=== PATIENT | female | born 1970 | race Caucasian/White ===

== ENCOUNTER 2019-07-13 16:53 | Emergency (ER) | payer OTHER, SELFPAY ==
[2019-07-13 16:57] VITALS: BP 110/90; PULSE 79; RESP 18; TEMP 36.6; O2SAT 100
--- NOTE | 2019-07-13 16:59 | ED.GENADULT ---
HPI - General Adult General Chief complaint: Headache Stated complaint: headache Time Seen by Provider: 07/13/19 16:58 Source: patient Mode of arrival: ambulatory Limitations: no limitations History of Present Illness HPI narrative: Patient is a 49-year-old female with a history of previous migraine headaches who presents for evaluation of headache pain. Patient reports that she had what feels consistent with migraine headache that began this morning with gradual onset, pain over her right eye and the right side of her head without visual changes. Patient does report photosensitivity, nausea without vomiting. No dizziness. No numbness. No thunderclap sensation or acute onset. Patient has been ambulatory. She denies any weakness. Patient states she had a history of migraine headaches such as this several years ago that also occur when she did not drink coffee in the morning, and this morning patient also did not drink coffee and felt the headache coming on immediately. Patient denies any chest pain, belly pain. Related Data Allergies Allergy/AdvReac Type Severity Reaction Status Date / Time amoxicillin [From Augmentin] Allergy Unknown Swelling Verified 07/13/19 17:24 clavulanic acid Allergy Unknown Swelling Verified 07/13/19 17:24 [From Augmentin] Penicillins Allergy Unknown Swelling Verified 07/13/19 17:01 of Lip/Tongue/Throat Review of Systems Review of Systems: Narrative: CONSTITUTIONAL: Denies fever, chills, or sweats. EYES: Denies visual changes ENT: Denies rhinorrhea, congestion CARDIOVASCULAR: Denies chest pain RESPIRATORY: Denies cough or dyspnea. GASTROINTESTINAL: Denies abdominal pain, reports nausea GENITOURINARY: Denies dysuria or hematuria. SKIN: Denies rash or itching. MUSCULOSKELETAL: Denies back pain, joint pain, or myalgia. NEUROLOGIC: Reports headache, denies numbness or weakness PSYCHIATRIC: Reports history of anxiety PMFSH Past Medical History Medical History (Updated 07/13/19 @ 17:26 by Danielle Min MD) Anxiety Nephrolithiasis Surgical History Surgical History (Updated 07/13/19 @ 18:29 by Danielle Min MD) H/O section H/O lithotripsy H/O: hysterectomy Social History Social History (Updated 07/13/19 @ 17:25 by Danielle Min MD) Smoking status: Never smoker Alcohol intake: never Substance use: never Living arrangements: with family Gender identity (if verbalized by the patient): Female Exam Narrative: Exam Narrative: GENERAL: Awake, alert, conversant, uncomfortable. HEAD: Normocephalic, atraumatic. EYES: PERRLA and EOMI. ENT: Nares clear, no rhinorrhea or epistaxis. Mucous membranes moist. NECK: Supple. CHEST: No respiratory distress, breathing even and non labored HEART: Regular rate, sinus rhythm ABDOMEN:Non distended, non tender EXTREMITIES: Normal range of motion. No edema. SKIN: Warm, dry, no rash. NEURO:No focal deficits. Alert and oriented x3. EOMs intact without nystagmus. No facial droop/asymmetry noted bilaterally. Grimace intact. Intact sensation in face. Hearing intact bilaterally. Shoulder shrug intact. Strength 5/5 bilateral upper extremities. Strength 5/5 bilateral lower extremities. Ambulatory with a narrow base, steady gait. Course Vital Signs Vital signs: Vital Signs Temperature 36.6 C 07/13/19 16:57 Pulse Rate 79 07/13/19 16:57 Respiratory Rate 18 07/13/19 16:57 Blood Pressure 110/90 07/13/19 16:57 Pulse Oximetry 100 07/13/19 16:57 Temperature 36.6 C 07/13/19 16:57 Pulse Rate 79 07/13/19 16:57 Respiratory Rate 18 07/13/19 16:57 Blood Pressure 110/90 07/13/19 16:57 Pulse Oximetry 100 07/13/19 16:57 Medical Decision Making MDM Narrative Medical decision making narrative: The patient was evaluated in the emergency department for headache. Patient's headache pain was not sudden or maximal in onset. There are no focal deficits on exam. Subarachnoid hemorrhage is felt to be
[2019-07-13] MEDS: SODIUM CHLORIDE 0.9% IV 1,000 ML 999 ML IV CONT (17:33)
[2019-07-13] MEDS: MAGNESIUM SULF 2 GM/WATER 50ML 2 GM/50 ML BAG IVPB (17:34)
[2019-07-13] MEDS: KETOROLAC 15 MG/ML VIAL (*BKC) IV PUSH (17:45)
[2019-07-13 17:52] LABS: Glucose Point of Care 81 (65-105)
[2019-07-13 18:39] VITALS: BP 115/68; PULSE 68; RESP 18; O2SAT 99
== END 2019-07-13 18:40 | disposition home or self-care (01) ==
PROVIDERS: Emergency Provider Emergency Medicine; PCP Family Medicine
DX: G43.009 Migraine without aura, not intractable, without status migrainosus (principal); Z87.442 Personal history of urinary calculi
CPT/HCPCS: 82948; 96365; 96375; 99284; J0131; J1100; J1200; J1885; J3475; J7030

== ENCOUNTER 2019-11-02 11:50 | Emergency (ER) | payer OTHER, SELFPAY ==
--- NOTE | ~2019-11-02 | CT_ITS ---
EXAMINATION: CT abdomen pelvis wo con DATE: 11/02/2019 12:41 INDICATION: Abdominal pain. History of prior kidney stones. TECHNIQUE: Computed tomography (CT) of the abdomen and pelvis was performed without intravenous contr ast. Automated exposure control and iterative reconstruction technique were employed. Exam dose: 232 .63 mGy-cm total exam DLP. COMPARISON: 11/15/[address] abdomen pelvis FINDINGS: The lung bases are clear of infiltrate or consolidation. Normal heart size. No pericardial or pleural effusion. The liver, gallbladder, bile ducts, spleen, pancreas, pancreatic duct and adrenal glands are normal. There is there is an approximately 3.2 mm calculus of the distal left ureter with proximal mild left hydroureteronephrosis. There are multiple left nonobstructing kidney stones, the largest measuring up to approximately 6 x 1 2.4 mm on axial view, situated in the lower pole, with numerous additional smaller left kidney stones . No right urinary tract calculus is evident. There are bilateral parapelvic renal cysts. Normal appendix. No bowel obstruction, bowel wall thickening, pneumatosis or intraperitoneal free air . Normal caliber and mild atherosclerotic calcification of the abdominal aorta. No intraperitoneal or r etroperitoneal or pelvic mass lesion or adenopathy or ascites. Common and degenerative disease at L5-S1. IMPRESSION: 3.2 mm distal left ureteral calculus with proximal mild left hydroureteronephrosis Numerous nonobstructing left kidney stones Bilateral parapelvic renal cysts Reviewed, dictated and finalized at [facility]. Reviewed, dictated and finalized at [facility]. IMPRESSION: 3.2 mm distal left ureteral calculus with proximal mild left hydro ureteronephrosis Numerous nonobstructing left kidney stones Bilateral parapelvic renal cysts
[2019-11-02 12:00] VITALS: BP 127/70; PULSE 86; RESP 18; TEMP 36.4; O2SAT 100
[2019-11-02 12:23] LABS: Basophils Percent Auto 0.5 % (0.2-1.2); Eosinophils Absolute Auto 0.1 K/mm3 (0-0.3); Eosinophils Percent Auto 1.7 % (0-4.4); Hematocrit 40.2 % (37.0-47.0); Hemoglobin 13.8 g/dL (12.0-15.0); Immature Granulocyte Absolute 0.04 K/mm3 (0.00-0.031); Immature Granulocyte Percent A 0.5 % (0-0.5); Lymphocytes Absolute Auto 2.48 K/mm3 (0.9-3.2); Lymphocytes Percent Auto 29.7 % (18.3-44.2); Mean Corpuscular HGB Conc 34.3 g/dl (32-36); Mean Corpuscular Hemoglobin 33.3 pg (26-34); Mean Corpuscular Volume 96.9 fl (80-100); Mean Platelet Volume 9.5 fl (7.4-10.4); Monocytes Absolute Auto 0.5 K/mm3 (0.1-0.6); Monocytes Percent Auto 5.6 % (2.6-8.5); Neutrophils Absolute Auto 5.2 K/mm3 (1.3-6.7); Platelet Count Result 235 k/mm3 (150-375); Red Blood Count 4.15 M/mm3 (4.2-5.4); Red Cell Distribution Width 12.2 % (11.5-14.5); White Blood Count 8.4 K/mm3 (4.5-10.0)
--- NOTE | 2019-11-02 12:25 | ED.ABDPAIN ---
HPI - Abdominal Pain General Chief Complaint: Abdominal Pain Stated Complaint: Possible Kidney Stone Time Seen by Provider: 11/02/19 12:25 Source: patient Mode of arrival: ambulatory Limitations: no limitations History of Present Illness HPI narrative: Patient presents with left flank pain radiating to the left lower quadrant started this morning, denies any aggravating or relieving factors, patient reports similar symptoms secondary to kidney stone. Patient denies any fever, chills, nausea, vomiting or urinary symptoms. Currently patient denied any symptoms. She is pain-free Related Data Allergies Allergy/AdvReac Type Severity Reaction Status Date / Time amoxicillin [From Augmentin] Allergy Unknown Swelling Verified 11/02/19 12:02 clavulanic acid Allergy Unknown Swelling Verified 11/02/19 12:02 [From Augmentin] Penicillins Allergy Unknown Swelling Verified 11/02/19 12:02 of Lip/Tongue/Throat Review of Systems Review of Systems: Narrative: CONSTITUTIONAL: Denies fever, chills, or sweats. EYES: Denies visual changes, redness, or discharge. ENT: Denies rhinorrhea, congestion, sore throat, or otalgia. CARDIOVASCULAR: Denies chest pain, palpitations, or edema. RESPIRATORY: Denies cough or dyspnea. GASTROINTESTINAL: Denies abdominal pain, nausea, vomiting, or diarrhea. GENITOURINARY: Denies dysuria or hematuria. SKIN: Denies rash or itching. MUSCULOSKELETAL: Denies back pain, joint pain, or myalgia. NEUROLOGIC: Denies headache, numbness, or weakness. PSYCHIATRIC: Denies anxiety or depression. COUNT INCLUDES THE [facility] Past Medical History Medical History Anxiety Nephrolithiasis Surgical History Surgical History H/O section H/O lithotripsy H/O: hysterectomy Social History Social History Smoking status: Never smoker Alcohol intake: never Substance use: never Gender identity (if verbalized by the patient): Female Exam Narrative: Exam Narrative: General appearance: Well-developed, well-nourished Skin: Normal color Head: Normocephalic, nontraumatic Eyes: Clear conjunctiva ENT: Oropharynx normal, ears normal, nose normal Neck: Supple, nontender Chest and respiratory: Airway patent, no respiratory distress, no accessory muscle use Heart: Regular rate/rhythm Abdomen: Soft, nontender, no organomegaly, quiet bowel sounds Vascular: Normal peripheral pulses, normal capillary refill. Musculoskeletal: Normal range of motion, nontender back Neurologic: Alert and oriented ?3, [employer] is normal as tested, no gross motor deficit Course Course Emergency Course: Improved Vital Signs Vital signs: Vital Signs Temperature 36.4 C 11/02/19 12:00 Pulse Rate 86 11/02/19 12:00 Respiratory Rate 18 11/02/19 12:00 Blood Pressure 127/70 11/02/19 12:00 Pulse Oximetry 100 11/02/19 12:00 Temperature 36.4 C 11/02/19 12:00 Pulse Rate 86 11/02/19 12:00 Respiratory Rate 18 11/02/19 12:00 Blood Pressure 127/70 11/02/19 12:00 Pulse Oximetry 100 11/02/19 12:00 MDM - Abdominal Pain MDM Narrative Medical decision making narrative: Kidney stone is my concern. Labs, CT abdomen and pelvis without contrast ordered. UA showed hematuria, CT abdomen and pelvis without contrast showed a 3.2 mm stone distal left ureter. Currently patient is asymptomatic which could be already passed the stone . Patient will be discharged to follow-up with Dr. Espinoza as needed Lab Data Result diagrams: 11/02/19 12:16 11/02/19 12:16 Labs: Lab Results 11/02/19
[2019-11-02 12:32] LABS: Add Urine Microscopic? YES; Appearance Urine Clear (Clear); Bacteria Urine Trace /hpf; Bilirubin Urine Negative (Negative); Blood Urine 2+ (Negative); Color Urine Yellow (Yellow); Glucose Urine UA Negative (Negative); Ketones Urine Negative (Negative); Leukocyte Esterase Ur Negative LEU/UL (Negative); Mucus Urine Few /lpf; Nitrate Urine Negative (Negative); Protein Urine 1+ mg/dL (Negative); RBC Urine 51-75 /hpf (0-2); Specific Grav Ur 1.018 (1.001-1.035); Squamous Epithelial Cell Urine Occasional /hpf (Few); Urobilinogen Urine Negative mg/dL (<2.0); WBC Urine 0-3 /hpf
[2019-11-02 12:41] LABS: Anion Gap 7 mmol/L (8-16); Blood Urea Nitrogen 13 mg/dL (7-17); Calcium 8.8 mg/dL (8.4-10.2); Carbon Dioxide 25 mmol/L (22-30); Chloride 105 mmol/L (98-107); Estimated Glomerular Filt Rate > 60; Glucose 79 mg/dL (65-105); Potassium 4.4 mmol/L (3.4-5.0); Sodium 137 mmol/L (137-145)
--- NOTE | 2019-11-02 13:48 | PC.NURSE ---
all results back. waiting further orders.
[2019-11-02 14:31] VITALS: BP 133/88; PULSE 78; RESP 17; O2SAT 100
== END 2019-11-02 14:32 | disposition home or self-care (01) ==
PROVIDERS: Physician Assistant; Emergency Provider Emergency Medicine; PCP Family Medicine
DX: N13.2 Hydronephrosis with renal and ureteral calculous obstruction (principal); Z87.442 Personal history of urinary calculi; N28.1 Cyst of kidney, acquired
CPT/HCPCS: 36415; 74176; 80048; 81001; 85025; 99284

== ENCOUNTER 2020-04-20 08:20 | Outpatient (CLI) | payer OTHER, SELFPAY ==
--- NOTE | 2020-04-20 | ECG_ITS ---
Measurements Intervals [place] Rate: 57 P: 60 HI: 158 QRS: 0 QRSD: 77 T: 47 QT: 443 QTc: 435 Interpretive Statements SINUS BRADYCARDIA BORDERLINE ECG Electronically Signed On 04-20-2020 10:19:16 UTILIZATION MANAGER by Navdeep Melo D.O.
--- NOTE | 2020-04-20 | ECHO_ITS ---
Patient Info Name: Charmaine Davis Age: 50 years : 1970 Gender: Female Ht: 67 in Wt: 165 lbs BSA: 1.89 m2 HR: 51 bpm BP: 119 / 68 mmHg Heart Rhythm: Bradycardia, Sinus Rhythm Technical Quality: Good Exam Date: 04/20/2020 9:05 AM Exam Location: [facility] Patient Status: Outpatient Admit Date: 04/20/2020 Staff Ordering Physician: Bruno, Nora Ramirez NP Building Insulation Supervisor: Dot Arguelles RDCS Attending Provider: Jordan, Nora Ramirez NP Referring Physician: Bruno NATARAJAN; Exam Type: CA echo doppler color flow Study Info Indications - R06.02 SOB Complete two-dimensional, color flow and Doppler transthoracic echocardiogram is performed. Summary 1. Complete two-dimensional, color flow and Doppler transthoracic echocardiogram is performed. 2. Left ventricular systolic function is normal, estimated at 55-60%. 3. There is no increased left ventricular wall thickness. 4. The left ventricular diastolic function is normal. 5. Left atrial chamber dimension is mildly enlarged. 6. Right atrial chamber dimension is upper limits of normal. 7. There is no aortic valve stenosis. 8. There is trace mitral valve regurgitation. 9. There is trace tricuspid valve regurgitation. 10. No pulmonary hypertension, estimated pulmonary arterial systolic pressure is 24 mmHg. 11. There is trivial pericardial effusion. Left Ventricle Left ventricular chamber dimension is normal. Left ventricular systolic function is normal, estimated at 55-60%. There is no increased left ventricular wall thickness. The left ventricular diastolic function is normal. Global longitudinal strain is normal at -19 %. Right Ventricle Right ventricular chamber dimension is normal. Right ventricular systolic function is normal. Left Atria Left atrial chamber dimension is mildly enlarged. Right Atria Right atrial chamber dimension is upper limits of normal. Aortic Valve The aortic valve is probable trileaflet. There is no aortic valve stenosis. There is no aortic valve regurgitation. Pulmonic Valve The pulmonic valve is not well visualized. Mitral Valve The mitral valve has normal leaflets. There is trace mitral valve regurgitation. Tricuspid Valve The tricuspid valve leaflets are normal. There is trace tricuspid valve regurgitation. No pulmonary hypertension, estimated pulmonary arterial systolic pressure is 24 mmHg. Pericardium/Pleural The pericardium appears normal. There is trivial pericardial effusion. Inferior Vena Cava Normal inferior vena cava with >50% collapse upon inspiration consistent with normal right atrial pressure, 5 mmHg. Aorta The aortic root size at the sinus of Valsalva is normal. Left Ventricular Outflow Tract Name Value Normal LVOT 2D LVOT Diameter 2.0 cm LVOT Doppler LVOT Peak Gradient 4 mmHg LVOT Mean Gradient 2 mmHg LVOT VTI 22 cm LVOT VTI/AV VTI Ratio 0.9 LVOT Stroke Volume 67 ml LVOT CO
== END 2020-04-20 08:21 | disposition home or self-care (01) ==
PROVIDERS: PCP Family Medicine; Visit Provider Nurse Practitioner
DX: R00.2 Palpitations (principal); R06.02 Shortness of breath; R94.31 Abnormal electrocardiogram [ECG] [EKG]
CPT/HCPCS: 93005; 93306

== ENCOUNTER 2020-07-25 11:39 | Outpatient (CLI) | payer OTHER, SELFPAY ==
--- NOTE | 2020-08-11 13:24 | WPDHOMESLEEP ---
Sleep Study - Home Unattended Date of Study: 07/25/20 Ordering Provider: Navdeep Melo DO Interpreting Provider: Katie Llanes MD Home Sleep Study Type: Apnea Link Air Height: 1.7 m Weight: 74.843 kg Body Mass Index: 25.8 Neck Circumference (inches): 10.75 [place]: 11 Reason for Sleep Study Hypersomnia Sleep History Charmaine Davis is a 50-year-old female whose tells her that she snores and stops breathing at night. She rarely awakens from sleep feeling short of breath. She does not awaken at night with heartburn, belching or coughing. She frequently snores, and this is frequently loud enough that he complains about it. She frequently has trouble sleep with a cold. She rarely wakes up gasping for breath at night. She does not have breathing problems at night that she is aware of. She occasionally sweats excessively at night. She frequently notices her heart pounding or beating irregularly at night. She occasionally falls asleep in the day. She does not fall asleep involuntarily. She rarely falls asleep while driving. She does not have loss of muscle tone was strong emotion. She occasionally has daytime difficulties due to excessive sleepiness. She does not feel paralyzed on waking or falling asleep. She frequently has vivid dreamlike scenes upon awakening or falling asleep. She does not feel afraid to go to sleep. She frequently has nightmares. She frequently remembers her dreams and frequently has racing thoughts. She occasionally feels sad, depressed, and anxious. She constantly has muscular tension. She rarely notices parts of her body jerking and she rarely kicks at night. She constantly has crawling and aching feelings in her legs. She occasionally has leg pain at night. She occasionally has morning jaw pain. She does not grind her teeth during sleep. She frequently has bothered by pain during the day, occasionally has awakened by pain at night. She occasionally wakes up feeling stiff the morning. She occasionally wakes up with sore or achy muscles. She frequently wakes up with pain in the neck and spine. She has fatigue, palpitations, memory problems and poor appetite. Normal bedtime 9:00 p.m. falling asleep somewhere between 11:00 p.m. and 12 midnight. She wakes up every time she hears a noise. She is able to go back to sleep within 15 minutes. She wakes in the morning at 7:00 a.m.. On the weekends she goes to bed at 9:00 p.m. and wakes at 9:00 a.m.. She estimates getting between 7 and 8 hours of sleep at night. She takes naps in the afternoon or evening. A short nap may be refreshing. She is usually drowsy in the morning. She feels better in the afternoon compared other times a day. Habits: Quit tobacco 13 years ago. Caffeine 1 soda and 1 coffee per day. No alcohol or recreational drugs. [facility] Past Medical History Medical History (Updated 08/11/20 @ 16:14 by Katie Llanes MD) Anxiety Anxiety and depression Hypothyroidism Nephrolithiasis Surgical History Surgical History H/O section H/O lithotripsy H/O: hysterectomy Social History Social History Smoking status: Former smoker Alcohol intake: never Substance use: never Gender identity (if verbalized by the patient): Female Medications Home Medications Medication Instructions Recorded Confirmed Type fluoxetine 20 mg capsule 20 mg PO DAILY 05/02/20 05/17/20 History fluticasone propionate 50 1 spray INTRANASAL DAILY 05/02/20 05/17/20 History mcg/actuation nasal spray,suspension cholecalciferol (vitamin D3) 125 125 mcg PO DAILY 05/17/20 05/17/20 History mcg (5,000 unit) capsule levothyroxine 100 mcg tablet 100 mcg PO DAILY 05/17/20 05/17/20 History melatonin 5 mg capsule 10 mg PO DAILY cap 05/17/20 05/17/20 History vitamin B complex 1 tablet PO DAILY 05/17/20 05/17/20 History Sleep Proc
[2020-08-11 15:59] VITALS: BMI 25.8
== END 2020-07-27 11:08 | disposition home or self-care (01) ==
LOC: ANHCSM 11:41
PROVIDERS: PCP Family Medicine; Visit Provider Internal Medicine Cardiovascular Disease
DX: G47.10 Hypersomnia, unspecified (principal); G47.33 Obstructive sleep apnea (adult) (pediatric)
CPT/HCPCS: 95806

== ENCOUNTER 2020-09-09 18:11 | Emergency (ER) | payer OTHER, SELFPAY ==
[2020-09-09 18:13] VITALS: BP 128/63; PULSE 83; RESP 17; TEMP 36.3; O2SAT 99
--- NOTE | 2020-09-09 19:11 | ED.DENTAL ---
HPI - Dental/Oral General Chief complaint: Dental/Oral Stated complaint: tooth abscess Time Seen by Provider: 09/09/20 18:24 Source: patient Mode of arrival: ambulatory Limitations: no limitations History of Present Illness HPI Narrative: Patient presents for evaluation of right lower dental pain for last week. She states the pain is constant, throbbing, rated 8 out of 10 in severity. She the antibiotic therapy about a month ago. She had a root canal scheduled but the dentist informed her that they would need to reschedule the procedure. No fever, chills, nausea, vomiting. She took ibuprofen around noon today. This helped reduce her pain but she had recurrence of her pain within the last hour. No difficulty breathing or swallowing. No additional complaints or concerns. Related Data Home Medications Medication Instructions Recorded Confirmed fluoxetine 20 mg capsule 20 mg PO DAILY 05/02/20 08/16/20 fluticasone propionate 50 1 spray INTRANASAL DAILY 05/02/20 08/16/20 mcg/actuation nasal spray,suspension cholecalciferol (vitamin D3) 125 125 mcg PO DAILY 05/17/20 08/16/20 mcg (5,000 unit) capsule levothyroxine 100 mcg tablet 100 mcg PO DAILY 05/17/20 08/16/20 melatonin 5 mg capsule 10 mg PO DAILY cap 05/17/20 08/16/20 vitamin B complex 1 tablet PO DAILY 05/17/20 08/16/20 Allergies Allergy/AdvReac Type Severity Reaction Status Date / Time amoxicillin [From Augmentin] Allergy Unknown Swelling Verified 09/09/20 18:17 clavulanic acid Allergy Unknown Swelling Verified 09/09/20 18:17 [From Augmentin] Penicillins Allergy Unknown Swelling Verified 09/09/20 18:17 of Lip/Tongue/Throat Review of Systems Review of Systems: Narrative: CONSTITUTIONAL: Denies fever, chills, or sweats. EYES: Denies visual changes, redness, or discharge. ENT: Reports right lower dental pain. Denies rhinorrhea, congestion, sore throat, or otalgia. CARDIOVASCULAR: Denies chest pain, palpitations, or edema. RESPIRATORY: Denies cough or dyspnea. GASTROINTESTINAL: Denies abdominal pain, nausea, vomiting, or diarrhea. GENITOURINARY: Denies dysuria or hematuria. SKIN: Denies rash or itching. MUSCULOSKELETAL: Denies back pain, joint pain, or myalgia. NEUROLOGIC: Denies headache, numbness, dizziness, or weakness. PSYCHIATRIC: Denies anxiety or depression. PMFSH Past Medical History Medical History Anxiety Anxiety and depression Hypothyroidism Nephrolithiasis Surgical History Surgical History H/O section H/O lithotripsy H/O: hysterectomy Family History Family History (Updated 09/09/20 @ 19:13 by SENAIT Martinez, ) Mother No pertinent past medical history Father No pertinent past medical history Social History Social History Smoking status: Former smoker Alcohol intake: never Substance use: never Gender identity (if verbalized by the patient): Female Exam Narrative: Exam Narrative: GENERAL: Well-appearing, well-nourished, and in no acute distress. HEAD: Normocephalic, atraumatic. EYES: PERRLA and EOMI. ENT: Nares clear, no rhinorrhea or epistaxis. Mucous membranes moist. Oropharynx without tonsillar hypertrophy exudate or other lesions. There are several absent teeth. There is tenderness in the gumline adjacent to the right lower molar but there does not appear to be a significant drainable fluid collection. No trismus. Bilateral TMs pearly romano nonbulging NECK: Supple. No adenopathy or masses. No carotid bruits or JVD CHEST: Clear to auscultation. No respiratory distress. No wheezes rales or rhonchi HEART: Regular rate and rhythm. No murmur heard. Normal peripheral pulses. ABDOMEN: Soft, nontender, nondistended, normal active bowel sounds. EXTREMITIES: Normal range of motion. No edema. SKIN: Warm, dry, n
[2020-09-09] MEDS: CLINDAMYCIN HCL 150 MG CAP 300 MG PO (19:24)
[2020-09-09 19:31] VITALS: BP 120/75; PULSE 80; RESP 19; O2SAT 100
== END 2020-09-09 19:34 | disposition home or self-care (01) ==
PROVIDERS: Emergency Provider Nurse Practitioner; PCP Family Medicine
DX: K04.7 Periapical abscess without sinus (principal); F41.9 Anxiety disorder, unspecified; F32.9 Major depressive disorder, single episode, unspecified; Z87.891 Personal history of nicotine dependence
CPT/HCPCS: 99283; A9270

== ENCOUNTER 2020-11-28 16:12 | Outpatient (CLI) | payer OTHER, SELFPAY ==
--- NOTE | ~2020-11-28 | MM_ITS ---
EXAMINATION: MM screening [facility] BI w sarbjit HISTORY: Screening mammogram TECHNIQUE: Craniocaudal and mediolateral oblique 3-D tomosynthesis images were obtained and synthetic 2-D images were generated. CAD analysis was submitted and interpreted. COMPARISON: 07/25/2016, 01/12/2013 BREAST PARENCHYMAL COMPOSITION: There are scattered areas of fibroglandular density. FINDINGS: There is no evidence of suspicious mass, calcification, or architectural distortion to sugg est malignancy in either breast. There has been no suspicious interval change. IMPRESSION: 1. No mammographic evidence of malignancy. 2. Recommend routine screening mammography in one year. BI-RADS Category 1: Negative Reviewed, dictated and finalized at [facility].
== END 2020-11-28 16:13 | disposition home or self-care (01) ==
LOC: ANHIMG 16:14
PROVIDERS: PCP Family Medicine; Visit Provider Nurse Practitioner
DX: Z12.31 Encounter for screening mammogram for malignant neoplasm of breast (principal)
CPT/HCPCS: 77063; 77067

== ENCOUNTER → 2021-02-23 00:58 | Outpatient (CLI) | payer OTHER, SELFPAY ==
[2021-02-23 20:42] LABS: SARS-CoV-2 RNA PCR Positive
== END ==
PROVIDERS: PCP Family Medicine; Visit Provider Family Medicine
DX: U07.1 COVID-19 (principal)
CPT/HCPCS: C9803; U0003; U0005

== ENCOUNTER 2021-02-27 02:00 | Emergency (ER) | payer OTHER, SELFPAY ==
--- NOTE | ~2021-02-27 | CT_ITS ---
EXAMINATION: CT abdomen pelvis wo con DATE: 02/27/2021 09:41 INDICATION: Left abdominal pain. Constipation. Nausea and vomiting. TECHNIQUE: Computed tomography (CT) of the abdomen and pelvis was performed without intravenous contr ast. Automated exposure control and iterative reconstruction technique were employed. The dose-length product was 358.49 mGy-cm. COMPARISON: CT abdomen and pelvis 11/02/2019, 03/06/2016 FINDINGS: The visualized portions of the lung bases demonstrate mild atelectasis. There is a trace le ft pleural effusion. The heart size is normal. No pericardial effusion. There is diffuse hepatic stea tosis. The gallbladder, spleen, pancreas, and adrenal glands are normal. There are peripelvic cysts i n the kidneys. There are seven 1-2 mm stones in left kidney. There is an 11 mm stone in left kidney. No definite hydronephrosis. There are no dilated loops of bowel. The appendix is normal. There are no pathologically enlarged lymph nodes. There is no free intraperitoneal fluid. There is thoracolumbar levoscoliosis. There is severe lower lumbar spondylosis. IMPRESSION: 1. Nonobstructing left kidney stones. Reviewed, dictated and finalized at location A. CHEMICAL DEPENDENCY
[2021-02-27 02:02] VITALS: BP 124/82; PULSE 90; RESP 16; TEMP 36.4; O2SAT 99
[2021-02-27 04:24] VITALS: BP 122/80; PULSE 97; RESP 18; TEMP 36.3; O2SAT 100
[2021-02-27 07:25] LABS: Red Blood Count 4.19 M/mm3 (4.2-5.4); White Blood Count 11.9 K/mm3 (4.5-10.0)
[2021-02-27 07:26] LABS: Basophils Percent Auto 0.3 % (0.2-1.2); Eosinophils Absolute Auto 0.1 K/mm3 (0-0.3); Eosinophils Percent Auto 0.8 % (0-4.4); Hematocrit 40.3 % (37.0-47.0); Hemoglobin 13.7 g/dL (12.0-15.0); Immature Granulocyte Percent A 0.8 % (0-0.5); Lymphocytes Absolute Auto 0.73 K/mm3 (0.9-3.2); Lymphocytes Percent Auto 6.1 % (18.3-44.2); Mean Corpuscular Hemoglobin 32.7 pg (26-34); Mean Corpuscular Volume 96.2 fl (80-100); Mean Platelet Volume 9.7 fl (7.4-10.4); Monocytes Absolute Auto 0.5 K/mm3 (0.1-0.6); Monocytes Percent Auto 3.9 % (2.6-8.5); Neutrophils Absolute Auto 10.5 K/mm3 (1.3-6.7); Neutrophils Percent Auto 88.1 % (45.5-73.1); Platelet Count Result 196 k/mm3 (150-375); Red Cell Distribution Width 13.2 % (11.5-14.5)
[2021-02-27 07:50] VITALS: TEMP 38.7
[2021-02-27 07:51] LABS: Add Urine Microscopic? YES; Appearance Urine Clear (Clear); Bacteria Urine Trace /hpf; Bilirubin Urine Negative (Negative); Blood Urine 1+ (Negative); Color Urine Yellow (Yellow); Glucose Urine UA Negative (Negative); Ketones Urine 1+ mg/dL (Negative); Leukocyte Esterase Ur 1+ LEU/UL (Negative); Mucus Urine Few /lpf; Nitrate Urine Negative (Negative); Protein Urine 2+ mg/dL (Negative); Specific Grav Ur 1.023 (1.001-1.035); Squamous Epithelial Cell Urine Occasional /hpf (Few); Urobilinogen Urine Negative mg/dL (<2.0); WBC Urine 31-50 /hpf
[2021-02-27 07:59] LABS: Alanine Aminotransferase 20 U/L (4-35); Albumin Level 3.8 g/dL (3.5-5.1); Alkaline Phosphatase 115 U/L (38-126); Anion Gap 10 mmol/L (8-16); Aspartate Amino Transferase 21 U/L (14-36); Bilirubin,Total 0.8 mg/dL (0.2-1.3); Blood Urea Nitrogen 11 mg/dL (7-17); Calcium 8.7 mg/dL (8.4-10.2); Carbon Dioxide 26 mmol/L (22-30); Chloride 101 mmol/L (98-107); Estimated CRCL calculation 84 ml/min; Estimated Glomerular Filt Rate > 60; Glucose 124 mg/dL (65-110); Lipase 14 U/L (23-300); Potassium 3.4 mmol/L (3.4-5.0); Sodium 137 mmol/L (137-145)
[2021-02-27] MEDS: ONDANSETRON INJ 4 MG/2 ML VIAL IV PUSH (08:42)
[2021-02-27] MEDS: MORPHINE SULFATE (*CRX) 4 MG/ML INJ IV PUSH (08:42)
[2021-02-27] MEDS: SODIUM CHLORIDE 0.9% IV 1,000 ML 999 ML IV CONT (08:44)
--- NOTE | 2021-02-27 10:33 | ED.ABDPAIN ---
HPI - Abdominal Pain General Chief Complaint: Abdominal Pain Stated Complaint: COVID +, lower left abd. pain, n/v Time Seen by Provider: 02/27/21 07:01 History of Present Illness HPI narrative: Patient is a 50-year-old female who presents ER with multiple issues. Recently diagnosed with COVID-19 8 days ago. She has been having daily fevers. Over the last 2 days has been having nausea and vomiting is developed increased abdominal pain on the left side extending over to the right side. No diarrhea. No urinary frequency urgency or dysuria. Concerned she could have a kidney stone. Patient unvaccinated against COVID-19. Related Data Home Medications Medication Instructions Recorded Confirmed fluoxetine 20 mg capsule 20 mg PO DAILY 05/02/20 11/23/20 levothyroxine 100 mcg tablet 100 mcg PO DAILY 05/17/20 11/23/20 Allergies Allergy/AdvReac Type Severity Reaction Status Date / Time amoxicillin [From Augmentin] Allergy Unknown Swelling Verified 02/27/21 02:06 clavulanic acid Allergy Unknown Swelling Verified 02/27/21 02:06 [From Augmentin] Penicillins Allergy Unknown Swelling Verified 02/27/21 02:06 of Lip/Tongue/Throat Review of Systems Review of Systems: All systems reviewed & are unremarkable except as noted in HPI and below Constitutional: Constitutional: Denies chills, Reports fatigue and Reports fever(s) ENT: Denies nasal congestion and Denies sore throat Gastrointestinal: Gastrointestinal: Reports abdominal pain, Denies diarrhea, Reports nausea and Reports vomiting Genitourinary: Genitourinary: Denies nocturia, Denies dysuria and Denies flank pain Musculoskeletal: Musculoskeletal: Denies back pain, Denies joint swelling and Denies muscle cramps PMF Past Medical History Medical History Anxiety Anxiety and depression Hypothyroidism Nephrolithiasis Surgical History Surgical History H/O section H/O lithotripsy H/O: hysterectomy Family History Family History Mother No pertinent past medical history Father No pertinent past medical history Social History Social History Smoking status: Former smoker Alcohol intake: never Substance use: never Gender identity (if verbalized by the patient): Female Exam Narrative: GENERAL: Well-appearing, well-nourished, and in no acute distress. HEAD: Normocephalic, atraumatic. CHEST: Clear to auscultation. No respiratory distress. HEART: Regular rate and rhythm. Normal peripheral pulses. ABDOMEN: Soft, nontender, nondistended. EXTREMITIES: Normal range of motion. No edema. SKIN: Warm, dry, no rash. NEURO: Alert and oriented x3. PSYCH: Normal mood and affect. Course Course Emergency Course: Patient hydrated, pain improved with morphine and nausea improved with Zofran. Informed of results. Will place on antibiotic in case she is developing UTI. Vital Signs Vital signs: Vital Signs Temperature 97.6 F 02/27/21 02:02 Pulse Rate 90 02/27/21 02:02 Respiratory Rate 16 02/27/21 02:02 Blood Pressure 124/82 02/27/21 02:02 Pulse Oximetry 99 02/27/21 02:02 Temperature 101.7 F H 02/27/21 07:50 Pulse Rate 97 02/27/21 04:24 Respiratory Rate 18 02/27/21 04:24 Blood Pressure 122/80 02/27/21 04:24 Pulse Oximetry 100 02/27/21 04:24 MDM - Abdominal Pain Lab Data Result diagrams: 02/27/21 06:58 02/27/21 07:35 Labs: Lab Results 02/27/21 02/27/21 02/27/21 Range/Units 06:58 07:24 07:35 WBC 11.9 H (4.5-10.0) K/mm3 RBC 4.19 L (4.2-5.4) M/mm3 Hgb 13.7 (12.0-15.0) g/dL Hct 40.3 (37.0-47.0) % MCV 96.2 (80-100) fl MCH 32.7 (26-34) pg MCHC 34.0 (32-36) g/dl RDW 13.2 (11.5-14.5) % Plt Count 196 (150-375)
== END 2021-02-28 00:58 | disposition home or self-care (01) ==
PROVIDERS: Emergency Medicine; Emergency Provider Emergency Medicine; PCP Family Medicine
DX: U07.1 COVID-19 (principal); N39.0 Urinary tract infection, site not specified; R11.2 Nausea with vomiting, unspecified; E03.9 Hypothyroidism, unspecified; Z87.442 Personal history of urinary calculi; F41.9 Anxiety disorder, unspecified; F32.A Depression, unspecified; Z87.891 Personal history of nicotine dependence
CPT/HCPCS: 36415; 74176; 80053; 81001; 83690; 85025; 87077; 87086; 87088; 87186; 96361; 96374; 96375; 99284; J2270; J2405; J7030

== ENCOUNTER 2021-04-23 15:49 | Outpatient (CLI) | payer OTHER, SELFPAY ==
--- NOTE | ~2021-04-23 | XR_ITS ---
XR abdomen/kub 1V 04/23/2021 16:07 Indication: Acute pyelonephritis Procedure: KUB Comparison: Comparison to multiple prior studies sequentially, with oldest reviewed study dated 05/03. Findings: Nonobstructive bowel gas pattern. Stable calcifications overlying the left kidney, consiste nt with renal stones. There are pelvic phleboliths. Lung bases unremarkable. Mild levoscoliosis. Impression: 1: Left nephrolithiasis. Reviewed, dictated and finalized at location A. CIATE PROFESSOR OF SURGERY Impression: 1: Left nephrolithiasis.
== END 2021-04-23 15:50 | disposition home or self-care (01) ==
PROVIDERS: PCP Family Medicine; Visit Provider Nurse Practitioner Adult Health
DX: N10 Acute pyelonephritis (principal); N20.0 Calculus of kidney
CPT/HCPCS: 74018

== ENCOUNTER 2021-04-27 14:36 | Outpatient (CLI) | payer OTHER, SELFPAY ==
--- NOTE | ~2021-04-27 | US_ITS ---
EXAMINATION: US pelvic complete DATE: 04/27/2021 15:45 INDICATION: Left abdominal pain Comparison:No prior studies for comparison. TECHNIQUE: Multiple transabdominal sonographic images of the pelvis performed. FINDINGS: The uterus is surgically absent. The ovaries are not visualized, likely atrophic or surgically absent. There is no free fluid in the pelvis. There are no abnormal masses seen on either side. IMPRESSION: 1. Unremarkable pelvic ultrasound post hysterectomy. Reviewed, dictated and finalized at location A. ER RECOVERY OPERATOR
--- NOTE | ~2021-04-27 | US_ITS ---
EXAMINATION: US abdomen complete EXAM DATE: 04/27/2021 15:44 INDICATION: Acute pyelonephritis. TECHNIQUE: Multiple grayscale and Doppler images of the complete abdomen were obtained (by a technolo gist who performed the scan) and subsequently reviewed. There is no prior study for comparison. FINDINGS: The abdominal aorta is normal in caliber. Visualized portion IVC is patent. The pancreatic head a nd body are normal in appearance. The pancreatic tail is not visualized. The liver has normal echogenicity and contour. There are no focal liver lesions identified. There is no evidence of intrahepatic biliary duct dilation. Portal venous flow was seen in the hepatopedal , normal direction and has normal Doppler waveform. Common bile duct measures 3 mm, which is normal. The gallbladder wall is normal in thickness, with ex pected amount of distention. No sonographic evidence of pericholecystic fluid. There is no cholelit hiasis. There is mild gallbladder adenomyomatosis. Pharyngeal cap. Technologist performing exam repor ts patient did not demonstrate sonographic Ochoa's sign. Please note that this sign is less reliabl e in patients who have received pain medication. Right kidney: There is normal contour and echogenicity. It measures 10.5 x 4.5 cm centimeters. The re are no focal renal lesions identified. There is mild to moderate right-sided hydronephrosis. Left kidney: There is normal contour and echogenicity. It measures 10.6 x 5.0 x 5.7 centimeters. Th ere is a 1 cm echogenic focus with shadowing lower pole left kidney probably stone. There is no hyd ronephrosis. The spleen measures 10 centimeters and is morphologically normal. IMPRESSION: 1. Mild to moderate right-sided hydronephrosis (finding which was present on prior CT from February, without evidence of obstructing stone at that time). 2. Probable left nephrolithiasis. Reviewed, dictated and finalized at location B. H CRYSTAL GRINDER IMPRESSION: 1. Mild to moderate right-sided hydronephrosis (finding which was present on p rior CT from February, without evidence of obstructing stone at that time). 2. Probable left nephrolithiasis.
== END 2021-04-27 14:37 | disposition home or self-care (01) ==
LOC: ANHIMG 14:39
PROVIDERS: PCP Family Medicine; Visit Provider Nurse Practitioner Adult Health
DX: N10 Acute pyelonephritis (principal)
CPT/HCPCS: 76700; 76856

== ENCOUNTER 2021-06-07 15:58 | Outpatient (CLI) | payer OTHER, SELFPAY ==
--- NOTE | ~2021-06-07 | XR_ITS ---
XR wrist RT min 3V DATE: 06/07/2021 16:15 INDICATION: Right wrist pain. Tendon disorder. TECHNIQUE: 4 views COMPARISON: None FINDINGS: No fracture or dislocation, periosteal reaction or bone destruction, erosive change or sari drocalcinosis. IMPRESSION: Negative Reviewed, dictated and finalized at location A. IMPRESSION: Negative
== END 2021-06-07 15:59 | disposition home or self-care (01) ==
LOC: ANHIMG 16:00
PROVIDERS: PCP Family Medicine; Visit Provider Nurse Practitioner Adult Health
DX: M25.531 Pain in right wrist (principal); M67.833 Other specified disorders of tendon, right wrist
CPT/HCPCS: 73110

== ENCOUNTER 2022-05-08 09:35 | Outpatient (CLI) | payer OTHER, SELFPAY ==
--- NOTE | ~2022-05-08 | XR_ITS ---
EXAMINATION: XR cervical spine 4-5V DATE: 05/08/2022 09:53 INDICATION: Neck pain. TECHNIQUE: 4 views of cervical spine on 5 radiographs were obtained. COMPARISON: Cervical spine radiographs 01/07/2017 FINDINGS: There is 12 degrees levoscoliosis of cervicothoracic spine. There is 2 mm retrolisthesis of C5 on C6 and C6 on C7. There is hypolordosis of cervical spine. Vertebral body heights are normal. T here is moderately decreased disc height at C5-C6 and severely decreased disc height at C6-C7. There is multilevel uncovertebral joint osteoarthritis, severe on the right at C5-C6 and bilaterally at C6- C7. There is multilevel mild facet joint osteoarthritis. There is mild central canal stenosis at C5-C 6 and C6-C7. No prevertebral soft tissue swelling. IMPRESSION: 1. Severe cervical spondylosis, worsened from 01/07/2017. 2. Cervicothoracic levoscoliosis. Reviewed, dictated and finalized at location A.
== END 2022-05-08 09:36 | disposition home or self-care (01) ==
PROVIDERS: PCP Family Medicine; Visit Provider Nurse Practitioner Adult Health
DX: R51.9 Headache, unspecified (principal); M47.892 Other spondylosis, cervical region
CPT/HCPCS: 72050

== ENCOUNTER 2022-09-09 08:04 | Outpatient (CLI) | payer OTHER, SELFPAY ==
--- NOTE | ~2022-09-09 | MR_ITS ---
MRI of the cervical spine Clinical History: Radiculopathy Technique: Axial T2-weighted and gradient images, and sagittal T1-weighted, T2-weighted, and STIR [place] ges were acquired. Findings: There is mild reversal of the normal cervical lordosis. No fracture or subluxation seen. No suspicious bone marrow signal abnormality seen. At C2-C3, there is no disc bulge or herniation. No spinal canal stenosis, cord compression, or neural foraminal narrowing. At C3-C4, there is no significant disc bulge or herniation. No spinal canal stenosis, cord compressio n, or neural foraminal narrowing. At C4-C5, there is no significant disc bulge or herniation. No spinal canal stenosis, cord compressio n, or neural foraminal narrowing. At C5-C6, there is mild degenerative disc narrowing with mild disc osteophyte complex. No angel centr al canal stenosis or cord compression. Possible minimal right neural foraminal narrowing. Left neural foramen preserved. At C6-C7, there is moderate to advanced degenerative disc narrowing with minimal disc bulge. No spina l canal stenosis or cord compression. Probable mild bilateral neural foraminal narrowing. Paravertebral soft tissues are unremarkable. No abnormal signal seen in the spinal cord. Impression: Mild degenerative spondylosis at C5-C6 and C6-C7. Reviewed, dictated and finalized at [facility]. Impression: Mild degenerative spondylosis at C5-C6 and C6-C7.
--- NOTE | ~2022-09-09 | MR_ITS ---
MRI of the lumbar spine Clinical History: Radiculopathy Technique: Axial T2-weighted images, and sagittal T1-weighted, T2-weighted, and T2 fat-sat images wer e acquired. Findings: There is no fracture or subluxation of the lumbar spine. Vertebral bodies maintain normal h eight and alignment. No suspicious bone marrow signal abnormality seen. At L1-L2, L2-L3, L3-L4, L4-L5, there is no significant disc bulge or herniation. There are mild to mo derate facet joint degenerative changes at these levels. No spinal canal stenosis or neural foraminal narrowing at these levels. At L5-S1, there is moderate degenerative distended with minimal disc bulge and mild facet arthropathy . No central canal stenosis. Neural foramina are preserved bilaterally. Paravertebral soft tissues are unremarkable. Parapelvic renal cysts are present bilaterally. Impression: Minimal degenerative spondylitic change at the lower lumbar spine, as detailed above. Reviewed, dictated and finalized at [facility]. Impression: Minimal degenerative spondylitic change at the lower lumbar spine, as detailed above.
== END 2022-09-09 08:05 | disposition home or self-care (01) ==
PROVIDERS: PCP Family Medicine; Visit Provider Neurological Surgery
DX: M47.22 Other spondylosis with radiculopathy, cervical region (principal); M47.26 Other spondylosis with radiculopathy, lumbar region
CPT/HCPCS: 72141; 72148

== ENCOUNTER 2022-10-01 10:30 | Outpatient (RCR) | payer OTHER, SELFPAY ==
--- NOTE | 2022-09-12 11:05 | OPREHPOC ---
Outpatient Therapy Plan of Care This is a Multidisciplinary Plan of Care that may contain components documented by all disciplines (PT, OT, and ST.) PT Problem 1 PT Problem #1 Knowledge Deficit PT Goal 1 Goal 1* pt indep with HEP 2* pt maintain good shoulder position with exercises PT Problem 2 PT Problem #2 Pain PT Goal 1 Goal 1* cervical pain at worst 5/10 2* radicular pain into pinkie fingers intermittent 3* pt report with sleeping, awaken 3x/ night due to neck pain 4* Neck Disability Index score of 20% limitation in activity level PT Problem 3 PT Problem #3 Impaired Flexibility PT Goal 1 Goal pt perform 3 x without an increase in pain reported: 1* R shoulder flexion 2* L shoulder flexion 3* R shoulder ER PT Problem 4 PT Problem #4 Impaired Strength PT Goal 1 Goal 1*pt perform 20 reps of standing scapular adduction strengthening R and L with 3# hand wt 2* pt perform 15 reps of prone scapular adduction with UE at 90' and overhead R and L
--- NOTE | 2022-09-12 11:05 | PTOPEVAL1 ---
Assessment and note entered by Radha Taveras PT Evaluation Information Assessment Status Evaluation Diagnosis neck and low back pain Onset chronic-- had for years Subjective Information Charmaine reports: problems with neck and back pain for years, always hurts, not changed lately, same as always; her kids told her to come and do something about how bad she moves; saw neurosurgeon--had MRI and PT ordered; MRI: neck: C 5-6-7 report states mild degenerative changes MRI: lumbar: L 1 to 5: mild to moderate facet OA, L 5-S1 moderate degenerative changes with mild buldge; previous PT treatment for neck- had to stop due to car breaking down, had maybe 3 treatment sessions . PT for low back about 2 years ago-- not really helped. ACTIVITY: does all her home tasks; work with on construction tasks---painting, furniture work, cleaning, able to do with increased pain at end of day. does not have a consistent work schedule with , but has 2 children at home and is very active--on the go the entire day until 8PM; Reported Pain Level Pain Score Self Report neck pain Additional Pain Score Comments pain range in the past week 1-7/10; tight and muscles hard, velez, constant tingle in both pinkie fingers L>R; pain increase with activity/ end of day; driving - - 1 hour at most pain decrease with stretch neck, flatten neck into car seat or lie down; ice with sleeping awaken 7x/night due to neck pain Assessment PT Clinical Summary Charmaine has the diagnosis of neck pain and back pain. She reports the neck pain is the worse and wants to begin treatment on her neck. Her medical history includes Chiari malformation and chronic neck and back pain. Recent cervical and lumbar MRI reports state degenerative changes. Self assessment functional score with Neck Disability Index score of 28% limitation in activity level. Sleep is disrupted due to neck pain and she has constant radicul
--- NOTE | 2022-10-03 08:35 | PCPTNOTE ---
Pt. canceled 10/03/22 appointment noting that her daughter had Covid and she wanted to be cautious.
--- NOTE | 2022-10-09 10:09 | PCPTNOTE ---
pt called and canceled today's reeval due to having to go to ER due to kidney stones; she has dr esdras this week and will call and reschedule the appt;
--- NOTE | 2022-10-29 11:18 | PTOPDC ---
Assessment and note entered by Radha Taveras, PT Evaluation Information Assessment PT Clinical Summary DISCHARGE PT Charmaine has received 8 PT sessions, from September 12 to October 01. She did not return for any other treatments. The goals were not addressed. Discharge PT. Plan of Care PT Services Indicated No
== END 2022-10-30 08:20 | disposition home or self-care (01) ==
LOC: ANHPT 10:30
PROVIDERS: PCP Family Medicine; Visit Provider Neurological Surgery
DX: M54.12 Radiculopathy, cervical region (principal); M54.16 Radiculopathy, lumbar region
CPT/HCPCS: 97110; 97112; 97140; 97162; 99199

== ENCOUNTER 2022-10-08 17:40 | Emergency (ER) | payer OTHER, SELFPAY ==
--- NOTE | ~2022-10-08 | CT_ITS ---
EXAMINATION: CT abdomen pelvis w con DATE: 10/08/2022 21:16 INDICATION: R flank pain TECHNIQUE: Computed tomography (CT) of the abdomen and pelvis was performed with 100 mL Omnipaque-350 intravenous contrast. Automated exposure control and iterative reconstruction technique were employe d. The dose-length product was 469.11 mGy-cm. COMPARISON: 02/27/2021; ultrasound abdomen and ultrasound pelvis 04/27/2021. FINDINGS: Lower thorax: Unremarkable Liver: Normal. Biliary/Gallbladder: Gallbladder is partially collapsed OK great 14 showed up No bile duct dilation. Pancreas: No mass or duct dilation. Spleen: Normal. Adrenals:No mass. Kidneys: Bilateral nonobstructing calculi. Simple left renal cyst. Multiple bilateral peripelvic cyst s. Multiple bilateral subcentimeter hypodensities that are too small to characterize but most likely represent cysts. Ill-defined hypoenhancement in the right upper pole. GI tract: Mild distal esophageal and gastric wall edema. No small or large bowel dilation. Normal gina endix. Mesentery/Peritoneum: No ascites, mass, or free air. Retroperitoneum: No mass. Atherosclerotic abdominal aortic and/or arterial calcifications. Pelvis: Bladder is decompressed. Surgically absent uterus. The ovaries are not visualized. Soft Tissues: Soft tissues and body wall unremarkable. Bones: No acute osseous finding. IMPRESSION: Mild esophagitis/gastritis. Ill-defined right upper pole renal hypoenhancement may reflect pyelonephritis in the appropriate clin ical context. No CT evidence of obstructive uropathy. Reviewed, dictated and finalized at location K. IMPRESSION: Mild esophagitis/gastritis. Ill-defined right upper pole renal hypoenhancement may reflect pyelonephritis i n the appropriate clinical context. No CT evidence of obstructive uropathy.
[2022-10-08 17:42] VITALS: BP 128/84; PULSE 111; RESP 18; TEMP 36.4; O2SAT 98
--- NOTE | 2022-10-08 19:03 | ED.BACK ---
HPI - Back Pain/Injury General Chief Complaint: Back Pain/Injury <Macy Sams PA-C - Last Filed: 10/08/22 23:01> Stated Complaint: right kidney pain <Macy Sams PA-C - Last Filed: 10/08/22 23:01> Time Seen by Provider: 10/08/22 18:09 <Macy Sams PA-C - Last Filed: 10/08/22 23:01> History of Present Illness HPI Narrative: 52-year-old female with a history of nephrolithiasis, ureterolithiasis, and renal cysts reports for evaluation for right flank pain x4 days. Patient states the pain as a ache that at times improves and at times worsens. States she has also had a decreased urine output, feels her stream is not as strong as normal. She denies dysuria or gross hematuria, nausea or vomiting, abdominal pain. She reports a low-grade temperature of 100.1 in the past 2 nights. States she called her urologist, Dr. Salmeron who unfortunately does not have any availability until December to see her in office. Patient states she passed a kidney stone a few weeks ago and was treated with an antibiotic by her PCP for a concurrent UTI. <Macy Sams PA-C - Last Filed: 10/08/22 23:01> Related Data Home Medications: Home Medications Medication Instructions Recorded Confirmed fluoxetine 20 mg capsule (Prozac) 20 mg PO DAILY 05/02/20 06/18/21 cholecalciferol (vitamin D3) 50 50 mcg PO DAILY 05/24/21 06/18/21 mcg (2,000 unit) capsule melatonin 3 mg capsule 3 mg PO QHS 05/24/21 06/18/21 naproxen 500 mg tablet (Naprosyn) 500 mg PO BID 05/24/21 06/18/21 vitamin B12 500 mcg-folic acid 400 1 tablet PO DAILY 05/24/21 06/18/21 mcg tablet levothyroxine 75 mcg tablet 75 mcg PO DAILY 06/18/21 06/18/21 (Euthyrox) <NORIS Venegas Last Filed: 10/08/22 23:01> Allergies/Adverse Reactions: Allergies Allergy/AdvReac Type Severity Reaction Status Date / Time amoxicillin [From Augmentin] Allergy Unknown Swelling Verified 06/18/21 11:07 clavulanic acid Allergy Unknown Swelling Verified 06/18/21 11:07 [From Augmentin] Penicillins Allergy Unknown Swelling Verified 06/18/21 11:07 of Lip/Tongue/Throat <Macy Sams PA-C - Last Filed: 10/08/22 23:01> Review of Systems Review of Systems: CONSTITUTIONAL: Denies fever, chills EYES: Denies visual changes, redness, or discharge. ENT: Denies rhinorrhea, congestion, sore throat, or otalgia. CARDIOVASCULAR: Denies chest pain, palpitations, or edema. RESPIRATORY: Denies cough or dyspnea. GASTROINTESTINAL: Denies abdominal pain, nausea, vomiting, or diarrhea. GENITOURINARY: See HPI SKIN: Denies rash or itching. MUSCULOSKELETAL: See HPI NEUROLOGIC: Denies headache, numbness, dizziness, or weakness. PSYCHIATRIC: Denies anxiety or depression. <Macy Sams PA-C - Last Filed: 10/08/22 23:01> [facility] Past Medical History Medical History: Medical History Anxiety Anxiety and depression Cervical radiculopathy Chiari malformation Hypothyroidism Lumbar radiculopathy Nephrolithiasis <Macy Sams PA-C - Last Filed: 10/08/22 23:01> Surgical History Surgical History: Surgical History H/O section H/O lithotripsy H/O: hysterectomy <Macy Sams PA-C - Last Filed: 10/08/22 23:01> Family History Family History: Family History Mother No pertinent past medical history Hypertension Depression Cerebrovascular accident Thyroid disorder Father No pertinent past medical history Alcoholism Liver cancer Diabetes mellitus Hypertension Cerebrovascular accident Sibling Cerebrovascular accident Grandparent Thyroid disorder <Macy Sams PA-C - Last Filed: 10/08/22 23:01> Social History Social History: Social History Social H
[2022-10-08 19:10] LABS: Appearance Urine Cloudy (Clear); Bacteria Urine 3+ /hpf; Bilirubin Urine Negative (Negative); Blood Urine 2+ (Negative); Color Urine Dark Yellow (Yellow); Glucose Urine UA Negative (Negative); Ketones Urine Trace mg/dL (Negative); Leukocyte Esterase Ur 3+ LEU/UL (Negative); Need Manual Microscopic Reviewed; Nitrate Urine Negative (Negative); Protein Urine 2+ mg/dL (Negative); Specific Grav Ur 1.021 (1.001-1.035); Squamous Epithelial Cell Urine Few /hpf (Few); WBC Urine >100 /hpf
[2022-10-08] MEDS: SODIUM CHLORIDE 0.9% IV 1,000 ML 999 ML IV CONT (19:12)
[2022-10-08 19:41] LABS: Add Urine Microscopic? YES
[2022-10-08 20:35] LABS: Basophils Percent Auto 0.2 % (0.2-1.2); Eosinophils Percent Auto 0.5 % (0-4.4); Hematocrit 38.1 % (37.0-47.0); Hemoglobin 12.6 g/dL (12.0-15.0); Immature Granulocyte Absolute 0.04 K/mm3 (0.00-0.031); Immature Granulocyte Percent A 0.5 % (0-0.5); Lymphocytes Absolute Auto 1.67 K/mm3 (0.9-3.2); Lymphocytes Percent Auto 19.6 % (18.3-44.2); Mean Corpuscular HGB Conc 33.1 g/dl (32-36); Mean Corpuscular Hemoglobin 32.4 pg (26-34); Mean Corpuscular Volume 97.9 fl (80-100); Mean Platelet Volume 9.2 fl (7.4-10.4); Monocytes Absolute Auto 0.7 K/mm3 (0.1-0.6); Monocytes Percent Auto 8.1 % (2.6-8.5); Neutrophils Absolute Auto 6.1 K/mm3 (1.3-6.7); Neutrophils Percent Auto 71.1 % (45.5-73.1); Platelet Count Result 206 k/mm3 (150-375); Red Blood Count 3.89 M/mm3 (4.2-5.4); Red Cell Distribution Width 12.8 % (11.5-14.5); White Blood Count 8.5 K/mm3 (4.5-10.0)
[2022-10-08 20:56] LABS: Alanine Aminotransferase 13 U/L (6-35); Albumin Level 3.9 g/dL (3.5-5.1); Alkaline Phosphatase 81 U/L (38-126); Anion Gap 3 mmol/L (8-16); Aspartate Amino Transferase 18 U/L (14-36); Bilirubin,Total 0.3 mg/dL (0.2-1.3); Blood Urea Nitrogen 13 mg/dL (7-17); Calcium 8.5 mg/dL (8.4-10.2); Carbon Dioxide 28 mmol/L (22-30); Chloride 105 mmol/L (98-107); Estimated CRCL calculation 70 ml/min; Estimated Glomerular Filt Rate > 60; Glucose 91 mg/dL (65-110); Potassium 3.8 mmol/L (3.4-5.0); Sodium 136 mmol/L (137-145)
[2022-10-08 22:47] VITALS: TEMP 37.3
[2022-10-08 22:57] VITALS: BP 137/77; PULSE 81; RESP 15; TEMP 37.3; O2SAT 100
[2022-10-08 23:03] VITALS: PULSE 79; RESP 20; O2SAT 100
== END 2022-10-08 23:03 | disposition home or self-care (01) ==
PROVIDERS: Emergency Medicine; Emergency Provider Physician Assistant; PCP Family Medicine
DX: N12 Tubulo-interstitial nephritis, not specified as acute or chronic (principal); F41.9 Anxiety disorder, unspecified; F32.A Depression, unspecified; E03.9 Hypothyroidism, unspecified; Z87.442 Personal history of urinary calculi; Z90.710 Acquired absence of both cervix and uterus
CPT/HCPCS: 36415; 74177; 80053; 81001; 85025; 87077; 87086; 87186; 96361; 96365; 99284; J0696; J7030; Q9967

== ENCOUNTER 2022-11-23 16:47 | Emergency (ER) | payer OTHER, SELFPAY ==
--- NOTE | ~2022-11-23 | CT_ITS ---
EXAMINATION: CT abdomen pelvis wo con DATE: 11/23/2022 18:09 INDICATION: Left flank pain TECHNIQUE: Computed tomography (CT) of the abdomen and pelvis was performed without intravenous contr ast. Automated exposure control and iterative reconstruction technique were employed. The dose-length product was 474.50 mGy-cm. COMPARISON: 10/08/2022. FINDINGS: Lower thorax: Unremarkable Liver: Normal. Biliary/Gallbladder: Gallbladder is normal. No bile duct dilation. Pancreas: No mass or duct dilation. Spleen: Normal. Adrenals:No mass. Kidneys: Punctate bilateral nonobstructing bilateral calculi. 5 mm nonobstructing right lower pole ca lculus. Coarse calcification in the left inferior pole may be secondary to prior scarring or procedur e. Bilateral parapelvic cysts. No suspicious mass, obstructing stone, or hydronephrosis. GI tract: No small or large bowel dilation. Normal appendix. Mesentery/Peritoneum: No ascites, mass, or free air. Retroperitoneum: No mass. Atherosclerotic abdominal aortic and/or arterial calcifications. Pelvis: Absent uterus. Decompressed urinary bladder. Soft Tissues: Soft tissues and body wall unremarkable. Bones: No acute osseous finding. IMPRESSION: No acute abdominopelvic process detected. Reviewed, dictated and finalized at location K.
[2022-11-23 16:50] VITALS: BP 114/55; PULSE 100; RESP 20; TEMP 36.9; O2SAT 100
--- NOTE | 2022-11-23 17:21 | ED.GENADULT ---
HPI - General Adult General Chief complaint: Urogenital-Female Stated complaint: flank pain Time Seen by Provider: 11/23/22 17:10 Source: patient Mode of arrival: ambulatory Limitations: no limitations History of Present Illness HPI narrative: 52 years old white female drove herself to the emergency room complaining of left flank pain and the left lower back pain started 5 days ago. Worse with certain positions and movement, better remaining still and certain position. She denies any fever, chills, nausea, vomiting, diarrhea, constipation, headache, chest pain or shortness of breath. Patient reports new workout few days prior to that was so strenuous and patient felt like she is going to . Patient did not take any NSAID since. Related Data Home Medications Medication Instructions Recorded Confirmed fluoxetine 20 mg capsule (Prozac) 20 mg PO DAILY 05/02/20 06/18/21 cholecalciferol (vitamin D3) 50 50 mcg PO DAILY 05/24/21 06/18/21 mcg (2,000 unit) capsule melatonin 3 mg capsule 3 mg PO QHS 05/24/21 06/18/21 naproxen 500 mg tablet (Naprosyn) 500 mg PO BID 05/24/21 06/18/21 vitamin B12 500 mcg-folic acid 400 1 tablet PO DAILY 05/24/21 06/18/21 mcg tablet levothyroxine 75 mcg tablet 75 mcg PO DAILY 06/18/21 06/18/21 (Euthyrox) Allergies Allergy/AdvReac Type Severity Reaction Status Date / Time amoxicillin [From Augmentin] Allergy Unknown Swelling Verified 06/18/21 11:07 clavulanic acid Allergy Unknown Swelling Verified 06/18/21 11:07 [From Augmentin] Penicillins Allergy Unknown Swelling Verified 06/18/21 11:07 of Lip/Tongue/Throat Review of Systems Review of Systems: All systems reviewed & are unremarkable except as noted in HPI and below PMFSH Past Medical History Medical History Anxiety Anxiety and depression Cervical radiculopathy Chiari malformation Hypothyroidism Lumbar radiculopathy Nephrolithiasis Surgical History Surgical History H/O section H/O lithotripsy H/O: hysterectomy Family History Family History Mother No pertinent past medical history Hypertension Depression Cerebrovascular accident Thyroid disorder Father No pertinent past medical history Alcoholism Liver cancer Diabetes mellitus Hypertension Cerebrovascular accident Sibling Cerebrovascular accident Grandparent Thyroid disorder Social History Social History Social History: Charmaine is very confident filling out medical forms. In the last 12 months she has received assistance from an organization or program for food. Smoking status: Never smoker Alcohol intake: current Substance use: never Lack of Transportation: No Lack of Food: Never True Current Housing: I Have Housing Concerned About Future Housing: No Difficulty Paying Gas/Electric Bills: No Difficulty Paying for Meds: No Currently Unemployed: No Education: Trade/Vocational Certificate Difficulty w/ Childcare or Family Care: No Living arrangements: with family Gender identity (if verbalized by the patient): Female Exam Narrative: General appearance: Well-developed, well-nourished Skin: Normal color Head: Normocephalic, nontraumatic Eyes: Clear conjunctiva ENT: Oropharynx normal, ears normal, nose normal Neck: Supple, nontender Chest and respiratory: Airway patent, no respiratory distress, no accessory muscle use Heart: Regular rate/rhythm Abdomen: Soft, nontender, no organomegaly, quiet bowel sounds Vascular: Normal peripheral pulses, normal capillary refill. Musculoskeletal: Diffuse tenderness left flank and left lower back with palpation, no bruises, no swelling, no rash, Neurologic: Alert and oriented ?3, MORTICIAN HELPER is normal as tested, no gross motor deficit
[2022-11-23 17:25] LABS: Basophils Percent Auto 0.3 % (0.2-1.2); Eosinophils Absolute Auto 0.1 K/mm3 (0-0.3); Eosinophils Percent Auto 1.4 % (0-4.4); Hematocrit 38.8 % (37.0-47.0); Hemoglobin 12.8 g/dL (12.0-15.0); Immature Granulocyte Absolute 0.02 K/mm3 (0.00-0.031); Immature Granulocyte Percent A 0.3 % (0-0.5); Lymphocytes Absolute Auto 2.34 K/mm3 (0.9-3.2); Lymphocytes Percent Auto 33.5 % (18.3-44.2); Mean Corpuscular Hemoglobin 32.1 pg (26-34); Mean Corpuscular Volume 97.2 fl (80-100); Mean Platelet Volume 9.4 fl (7.4-10.4); Monocytes Absolute Auto 0.3 K/mm3 (0.1-0.6); Monocytes Percent Auto 4.3 % (2.6-8.5); Neutrophils Absolute Auto 4.2 K/mm3 (1.3-6.7); Neutrophils Percent Auto 60.2 % (45.5-73.1); Platelet Count Result 201 k/mm3 (150-375); Red Blood Count 3.99 M/mm3 (4.2-5.4); Red Cell Distribution Width 12.5 % (11.5-14.5)
[2022-11-23] MEDS: KETOROLAC 30 MG/ML VIAL (*BKC) IV PUSH (17:28)
[2022-11-23 17:38] LABS: Appearance Urine Clear (Clear); Bacteria Urine 1+ /hpf; Bilirubin Urine Negative (Negative); Blood Urine Negative (Negative); Color Urine Yellow (Yellow); Glucose Urine UA Negative (Negative); Ketones Urine Negative (Negative); Leukocyte Esterase Ur Trace LEU/UL (Negative); Need Manual Microscopic Reviewed; Nitrate Urine Negative (Negative); Protein Urine Negative (Negative); Specific Grav Ur 1.026 (1.001-1.035); Squamous Epithelial Cell Urine Few /hpf (Few); Urobilinogen Urine 0.2 mg/dL (<2.0); pH Urine 5.5 (5.0-9.0)
[2022-11-23 17:39] LABS: Add Urine Microscopic? YES
[2022-11-23 17:46] LABS: Alanine Aminotransferase 16 U/L (6-35); Albumin Level 4.3 g/dL (3.5-5.1); Alkaline Phosphatase 65 U/L (38-126); Anion Gap 6 mmol/L (8-16); Aspartate Amino Transferase 21 U/L (14-36); Bilirubin,Total 0.5 mg/dL (0.2-1.3); Blood Urea Nitrogen 15 mg/dL (7-17); Calcium 8.6 mg/dL (8.4-10.2); Carbon Dioxide 29 mmol/L (22-30); Chloride 103 mmol/L (98-107); Estimated CRCL calculation 70 ml/min; Estimated Glomerular Filt Rate > 60; Glucose 141 mg/dL (65-110); Potassium 3.6 mmol/L (3.4-5.0); Sodium 138 mmol/L (137-145)
--- NOTE | 2022-11-23 18:00 | PC.NURSE ---
pt taken to CT at this time
[2022-11-23 19:09] VITALS: BP 107/75; PULSE 80; RESP 18; O2SAT 100
== END 2022-11-23 19:10 | disposition home or self-care (01) ==
PROVIDERS: Physician Assistant; Emergency Provider Emergency Medicine; PCP Family Medicine
DX: N39.0 Urinary tract infection, site not specified (principal); M54.50 Low back pain, unspecified; E03.9 Hypothyroidism, unspecified; F41.9 Anxiety disorder, unspecified; F32.A Depression, unspecified; Z90.710 Acquired absence of both cervix and uterus; Z87.442 Personal history of urinary calculi
CPT/HCPCS: 36415; 74176; 80053; 81001; 85025; 87086; 96374; 99284; J1885

== ENCOUNTER 2023-05-12 13:15 | Outpatient (RCR) | payer OTHER, SELFPAY ==
--- NOTE | 2023-04-17 11:07 | OPREHPOC ---
Outpatient Therapy Plan of Care This is a Multidisciplinary Plan of Care that may contain components documented by all disciplines (PT, OT, and ST.) PT Problem 1 PT Problem #1 Knowledge Deficit PT Goal 1 Goal 1* indep with HEP 2* maintain good position of shoulders with exercises PT Problem 2 PT Problem #2 Pain PT Goal 1 Goal 1* pt report pain rating at worst of 5/10 2* pt report with sleeping, awaken 1x/night due to pain 3* self assessment Neck Disability Index score of 18% limitation PT Problem 3 PT Problem #3 Impaired Flexibility PT Goal 1 Goal to improve driving ability, cervical rotation AROM 1* R 70' 2* L 70' cervical rotation without pain increase 3* R 4* L PT Problem 4 PT Problem #4 Impaired Strength PT Goal 1 Goal improve posture and position of neck/ shoulders to improve cervical stability with increase strength: 1* pt perform standing strengthening exercises x 20 reps
--- NOTE | 2023-04-17 11:08 | PTOPEVAL1 ---
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 The PT order is dated September 2022, she reports having more pain so decided to come for therapy. Self assessment Neck Disability Index is 24% limitation in activity. Pain disrupts her sleeping, driving and activity tolerance. With the evaluation: cervical rotation R/L and extension increase her pain; she has forward head and increased cervical extension, with rounded shoulder posture; there are spasms and tenderness over cervical and upper traps musculature. Skilled PT services are indicated for modalities to decrease pain and spasms, therapeutic exercises to stretch and strengthen cervical-thoracic complex, with education for HEP and posture correction. Plan of Care Interventions Electrical Stimulation,Hot Pack/Cold Pack,Manual Therapy,Neuro Re-education,Patient Education,Therapeutic Activities,Therapeutic Exercise,Ult
--- NOTE | 2023-05-12 14:32 | PTOPDC ---
Assessment and note entered by Lan Montano, PT Evaluation Information Assessment Status Discharge Diagnosis Cervicalgia Onset August 2022 Subjective Information Reports that she has been doing a lot better. Still has some stiffness on the left side of her neck. She was able to start painting her house with no increased pain this weekend. Feels comfortable with HEP at this time. Reported Pain Level Pain Score 1: Self Report Assessment PT Clinical Summary Patient met all goals for therapy at this time and is suitable for D/C to HEP at this time. Plan of Care PT Services Indicated D/C to HEP
--- NOTE | 2023-05-12 14:32 | OPREHPOC ---
Outpatient Therapy Plan of Care This is a Multidisciplinary Plan of Care that may contain components documented by all disciplines (PT, OT, and ST.) PT Problem 1 PT Problem #1 Knowledge Deficit PT Goal 1 Goal 1* indep with HEP 2* maintain good position of shoulders with exercises Progress Met PT Problem 2 PT Problem #2 Pain PT Goal 1 Goal 1* pt report pain rating at worst of 5/10 2* pt report with sleeping, awaken 1x/night due to pain 3* self assessment Neck Disability Index score of 18% limitation Progress Met PT Problem 3 PT Problem #3 Impaired Flexibility PT Goal 1 Goal to improve driving ability, cervical rotation AROM 1* R 70' 2* L 70' cervical rotation without pain increase 3* R 4* L Progress Met PT Problem 4 PT Problem #4 Impaired Strength PT Goal 1 Goal improve posture and position of neck/ shoulders to improve cervical stability with increase strength: 1* pt perform standing strengthening exercises x 20 reps Progress Met
== END 2023-05-12 15:48 | disposition home or self-care (01) ==
LOC: ANHPT 13:15
PROVIDERS: PCP Family Medicine; Visit Provider Neurological Surgery
DX: M54.2 Cervicalgia (principal)
CPT/HCPCS: 97014; 97110; 97140; 97161; 97530; G0283

== ENCOUNTER 2024-08-02 10:13 | Outpatient (CLI) | payer OTHER, SELFPAY ==
--- NOTE | ~2024-08-02 | XR_ITS ---
Left ankle Technique: AP, oblique, and lateral views were obtained. Clinical History: Pain Findings: No acute fracture or dislocation is seen. Osseous alignment is anatomic. Ankle mortise and other visualized joint spaces are preserved. Soft tissues are otherwise unremarkable. Impression: Unremarkable left ankle. Reviewed, dictated and finalized at location . Impression: Unremarkable left ankle.
--- NOTE | ~2024-08-02 | XR_ITS ---
EXAM: XR elbow RT min 3V DATE: 08/02/2024 10:49 HISTORY: bilateral ankle pain, rt elbow pain . COMPARISON: None available. FINDINGS: Normal mineralization. No fracture or dislocation. No lytic or blastic lesion. Mild degene rative change at the elbow joint. No erosion or periosteal change. Soft tissues within normal limits. IMPRESSION: Mild right elbow osteoarthritis. Reviewed, dictated and finalized at location K.
--- OUTSIDE RECORDS SUMMARY | 2024-08-02 11:35 | XMS_ITS | Referral Summary ---
Author Organization [facility] Address [address] [place] [address] Care Team Providers Care Drilling Field Professional Name Role Phone Jan Jordan MD Primary Care Provider [phone] Allergies Active Allergy Reactions Criticality Noted Date Comments Amoxicillin-Pot Clavulanate Itching,Swelling High 07/13/2013 Entire body swelling Entire body swelling augmentin Medications Euthyrox 100 mcg tablet TAKE 1 TABLET BY MOUTH ONCE DAILY IN THE MORNING 01/25/2020 Active FLUoxetine (PROzac) 20 mg capsule Take 20 mg by mouth daily 01/14/2020 Active fluticasone propionate (FLONASE) 50 mcg/actuation nasal spray USE 1 TO 2 SPRAY(S) IN EACH NOSTRIL ONCE DAILY NEEDED 03/03/2019 Active melatonin 10 mg tablet nightly Active Active Problems Problem Noted Date Diagnosed Date Kidney stone 04/07/2020 Social History Tobacco Use Types Packs/Day Years Used Date Smoking Tobacco: Former Smokeless Tobacco: Never Personal Safety Answer Date Recorded Getting School Help Needed Not on file 05/10 Comments No Sex and Gender Information Value Date Recorded Sex Assigned at Not on file 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 Gender Identity Not on file Sexual Orientation Not on file Last Filed Vital Signs Vital Sign Reading Time Taken Comments Blood Pressure 109/77 12/05/2020 5:05 PM CDT Pulse 80 12/05/2020 5:05 PM CDT Temperature 36.5 C (97.7 F) 12/05/2020 5:05 PM CDT Respiratory Rate 17 12/05/2020 5:05 PM CDT Oxygen Saturation 98% 12/05/2020 5:05 PM CDT Inhaled Oxygen Concentration - - Weight 74.8 kg (165 lb) 12/05/2020 5:05 PM CDT Height 170.2 cm (5' 7) 06/06/2020 7:26 AM CDT Body Mass Index 25.84 06/06/2020 7:26 AM CDT Plan of Treatment Not on file Insurance [address] Care Teams Drilling Field Professional Relationship Specialty Start Date End Date Jan Jordan MD PCP - General Family Medicine 12/27/19
--- OUTSIDE RECORDS SUMMARY | 2024-08-02 11:35 | XMS_ITS | Clinical Summary ---
Author Organization [facility] Address [address] [place] [address] Care Team Providers Care Coat Cutter Name Role Phone Kena Mauro MD Primary Care Provider + Source Comments [facility],non-owned Affiliates and Associated Physician Practices is amultiple site organization consisting of ambulatory clinics and hospital sitesin [place], [place], [place] and [place]. This disclosure is being madepursuant to the Care Everywhere program and may not contain all information available regarding this patient. Last updated 17.[facility] Allergies Active Allergy Reactions Criticality Noted Date Comments Amoxicillin-Pot Clavulanate Itching,Swelling High 07/13/2013 Entire body swelling Medications * Be aware that medications may not be up to date on this document. Alwaysverify current medications with the patient. FLUoxetine (PROZAC) 20 MG capsule Take 1 (one) capsule by mouth once daily Active levothyroxine (SYNTHROID) 75 MCG tablet Take 1 (one) tablet by mouth once daily Active metroNIDAZOLE (FLAGYL) 500 MG tablet Take 500 mg by mouth 2 times daily 9 Active fluorouracil (EFUDEX) 5 % creamIndication s:Actinic keratosis Apply to affected areas on face twice daily for 2 weeks. 40 g 1 9 Active Additional Information Patient not taking.Reported on 03/17/2019 fluticasone propionate (FLONASE) 50 MCG/ACT nasal spray once daily 0 Active Active Problems No known active problems Family History Medical History Relation Name Comments Cancer - Skin, Non Melanoma Paternal Uncle Relation Name Status Comments Paternal Uncle Social History Tobacco Use Types Packs/Day Years Used Date Smoking Tobacco: Former Cigarettes Q uit: 2007 Smokeless Tobacco: Never Tobacco Cessation:Counseling Given: Not Answered Alcohol Use Standard Drinks/Week Comments Yes 0 (1 standard drink = 0.6 oz pur e alcohol) Comments Unknown Sex and Gender Information Value Date Recorded Sex Assigned at Not on file 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 Gender Identity Not on file Sexual Orientation Not on file Plan of Treatment Health Maintenance Due Date Last Done Comments COLOGUARD (AGES 45-75) - COL ON CA SCREENING 1971 COLON MONITORING 1971 COLONOSCOPY - COLON CA SCREENING 1971 CT COLONOGRAPHY - COLON CA SCREENING 1971 Colorectal Cancer Screening 1971 FIT - COLON CA SCREENING 1971 FLEX SIG - COLON CA SCREENING 1971 LIPID TESTING 1971 MAMMOGRAM 1971 PAP SMEAR 1971 HIV SCREENING 1986 HEPATITIS C SCREENING 04/06/1989 DTAP/TDAP/TD VACCINES (1 - Tdap) 1990 HEPATITIS B VACCINE (1 of 3 - 19+ 3-dose series) 1990 PNEUMOCOCCAL VACCINE 50+ (1 of 1 - PCV) 2021 ZOSTER VACCINE (1 of 2) 2021 COVID-19 VACCINE (1 - 2023-2 5 season) 2023 DEPRESSION SCREENING 02/25/2024 INFLUENZA VACCINE (Season Ended) 2024 HIB VACCINE Aged Out No longer eligi ble based on patient's age to complete this topic HPV VACCINE Aged Out No longer eligi ble based on patient's age to complete this topic MENINGOCOCCAL (Group B) VACC INE SHARED DECISION-MAKING Aged Out No longer eligibl e based on patient's age to complete this topic MENINGOCOCCAL GROUPS A/C/Y/W VACCINE Aged Out No longer eligible b ased on patient's age to complete this topic Insurance [place], [place] [id number] [place] [address] [place] [address] [facility] Care Teams Coat Cutter Relationship Specialty Start Date End Date Kena Mauro MD [address] [id number] PCP - General 02/01/19
--- OUTSIDE RECORDS SUMMARY | 2024-08-02 11:35 | XMS_ITS | Data Portability ---
Author Organization [facility], [facility] Address [address] [place] [address] Assessment No assessment recorded. Plan of Treatment Reminders Order Date Submit Date Provider Last Modified By Organization Details Last Modified Time Details Appointments None recorde d. Lab testost erone, free + total, serum 022 05/10/19 [facility], [address] [place], [address], 2 00:24:50 lh + FSH, serum 022 05/10/19 [facility] [facility], [address] [place], [address], 2 00:24:52 estroge n, total, serum 022 05/10/19 [facility] [facility], [address] [place], [address], 2 00:24:51 progest erone, serum 022 05/10/19 [facility] [facility], [address] [place], [address], 2 00:24:52 Referral None recorde d. Procedures None recorde d. Surgeries None recorde d. Imaging None recorde d. Medication Orders None recorde d. Patient TargetsNo targets recorded. Patient InstructionsNo instructions recorded. Reason for Referral None Reported. Results Created Date Observation Date Name Description Value Unit Range Abnormal Flag Note LastModifiedBy Organization Detail LastModifiedTime 05/10/19 22 05/15/2021 TESTO STERO NE, FREE, BIOAV AILAB LE AND TOTAL , MS albumin 4.8 g/dL 3.6-5. 1 Not Available [address] [address] [place], [address], 05/16/2021 00:24:50 05/10/1905/15/2021 TESTO STERO NE, FREE, BIOAV AILAB LE AND TOTAL , MS sex hormone binding globulin 58.3 nmol/ L 17-124 Not Available [address], [address], 05/16/2021 00:24:50 05/10/1905/15/2021 TESTO STERO NE, FREE, BIOAV AILAB LE AND TOTAL , MS testosterone , free 1.4 pg/mL 0.2-5. 0 Not Available [address], [address], 05/16/2021 00:24:50 05/10/19 22 05/15/2021 TESTO STERO NE, FREE, BIOAV AILAB LE AND TOTAL , MS testosterone ,bioavailabl e 3.1 NG/dL 0.5-8. 5 Not Available [address], [address], 05/16/2021 00:24:50 05/10/1905/15/2021 TESTO STERO NE, FREE, BIOAV AILAB LE AND TOTAL , MS testosterone , total, MS 19 NG/dL 2-45 For addit ional li oquendo e refer to https ://ed ucati on.qu estdi Coshareds. com/f aq/FA Q165 (This link is being provi ded for qi mckeon nal/e thomasat ionkatya purpo ses only. ) (Note ) This test was devel oped and its rena tical perfo rmanc e rosalino cteri stics have been deter mined by [employer]. It has not been clear ed or appro forrest by the FDA. This assay has been valid ated pursu ant to the CLIA regul ation s and is used for clini warner purpo ses. MDF med fusio n [address] [facility] [address] [place] [address] [phone] Truman pathak MD Not Available [employer] [facility] [address] [place], [address], 05/16/2021 00:24:50 05/10/19 22 05/15/2021 ESTRO GEN, TOTAL , SERUM estrogen, total, serum 229.2 pg/mL Refer ence Range s for Total Estro gen: Folli cular Phase (1-12 days) : 90-59 0 pg/mL Lutea l Phase : 130-4 60 pg/mL Postm enopa usal: 50-17 0 pg/mL The total estro gen assay is not recom renée d for use in pre-p ubert al child [place]. Not Available [employer] [facility] [address] [place], [address], 05/16/2021 00:24:51 05/10/19 22 05/15/2021 PROGE STERO NE progesterone 5.2 NG/mL normal Refer ence Range s Femal e Folli cular Phase < 1.0 Lutea l Phase 2.6-2 1.5 Post menop ausal < 0.5 Pregn jose 1st Trime ster 4.1-3 4.0 2nd Trime ster 24.0- 76.0 3rd Trime ster 52.0- 302.0 Not Available [employer] [facility] [address] [place], [address], 05/16/2021 00:24:51 05/10/19 22 05/15/2021 FSH AND LH FSH 6.6 mIU/m L normal Refer ence Range Folli cular Phase 2.5-1 0.2 Mid-c ycle Peak 3.1-1 7.7 Lutea l Phase 1.5- 9.1 Postm enopa usal 23.0- 116.3 Not Available [employer] [facility] [address] [place], [address], 05/16/2021 00:24:52 05/10/19 22 05/15/2021 FSH AND LH LH 4.4 mIU/m L normal Refer ence Range Folli cular Phase 1.9-1 2.5 Mid-C ycle Peak 8.7-7 6.3 Lutea l Phase 0.5-1 6.9 Postm enopa usal 10.0- 54.7 Not Available [employer] [facility] [address] [place], [address], 05/16/2021 00:24:52 Result Notes None recorded. Problems Name Problem SNOMED Code Status Onset Date Resolution Date Notes Provider Name and Address Organization Details Recorded Time Acute vaginitis 90141551 Active 2018 Acute vaginitis; Progress: Stable Added By: Yajaira Barlow Add to Current Problems: YES ProblemSta tus: Current Not Available [facility] 2 16:10:14 Increased frequency of urination 782985878 Active 2018 Frequency of micturitio n; Progress: Stable Added By: Jimmie Alexander Add to Current Problems: YES ProblemSta tus: Current Not Available [facility] 2 16:10:14 Screening mammograp hy Active 2020 Encounter for screening mammogram for malignant neoplasm of breast; Progress: Stable Added By: Germaine Romero Add to Current Problems: YES ProblemSta tus: Current Not Available [facility] 2 16:10:14 Sampling of vagina for Papanicol aou smear Active 2020 Encounter for gynecologi warner examinatio n (general) (routine) without abnormal findings; Progress: Stable Added By: Germaine Romero Add to Current Problems: YES ProblemSta tus: Current Not Available [facility] 2 16:10:14 Lesion of ovary Active 2020 Other ovarian cyst, right side; Progress: Stable Added By: Germaien Romero Add to Current Problems: YES ProblemSta tus: Current Not Available [facility] 2 16:10:14 Problem Notes None recorded. Procedures Surgical History Date Name Laterality Status Provider Name and Address Organization Details Recorded Time dilation and curettage completed Neelam [facility] 05/08/2021 17:53:57 hysterectomy completed Neelam [facility] 05/08/2021 17:54:15 [facility]/08[facility] 17:54:23 Imaging Results None recorded. Procedure Notes None recorded. Medical Equipment None Reported. Allergies Allergen ID Allergen Name Allergen Category Reaction Reaction Severity Criticality Documentation Date Start Date Code Code System Note Provider Name and Address Organization Details Recorded Time 622832 Augmentin medicatio n Not available Not available Not available 12/15/20202018 66780 2 RxNorm Sever ity: Moder ate; Not Available [facility] 01:08:04 Medications Name Sig Start Date Stop Date Status Note LastModified by Organization Details LastModified Time clindamyc in HCl 300 mg capsule active Not Available Not Available Not Available [employer] h 0.05 mg-0.14 mg/24 hr transderm al Apply 1 patch twice a week by transder mal route. 2021 active Not Available Not Available Not Avai lable ibuprofen 800 mg tablet active Not Available Not Available Not Available fluconazo le 150 mg tablet TAKE ONE TABLET BY MOUTH A ONE-TIME DOSE, REPEAT IN 3 DAYS IF SYMPTOMS UNRESOLV ED active Fluconaz ole 150 MG Oral Tablet Refill Denied: No Refill DateOccu rred: 03/24/19 21 Not Available Not Available Not Available clarithro mycin 500 mg tablet TAKE 1 TABLET BY MOUTH TWICE DAILY FOR 14 DAYS active Not Available Not Available No t Available ondansetr on HCl 4 mg tablet TAKE 1 TABLET BY MOUTH EVERY 8 HOURS NEEDED FOR NAUSEA AND VOMITING active Not Available Not Available No t Available acetamino phen 300 mg-codein e 15 mg tablet active Not Available Not Available Not Available metronida zole 500 mg tablet take 1 tablet (500 mg) by oral route 2 times per day 04/14 completed metroNID AZOLE 500 mg oral tablet RxNorm: 934167 Allow Substitu tion: True Refill Denied: No Edited by: leonardo (Anaid Mendiola) on 04/14/19 20 Stopped by: leonardo (Anaid Mendiola) on 04/14/19 20 Not Available Not Available Not Available ciproflox acin 500 mg tablet TAKE 1 TABLET BY MOUTH TWICE DAILY active Not Available Not Available No t Available sulfameth oxazole 800 mg-trimet hoprim 160 mg tablet active Not Available Not Available Not Available ketorolac 10 mg tablet active Not Available Not Available Not Available levothyro xine 100 mcg tablet take 1 tablet (100 mcg) by oral route once daily active levothyr oxine 100 mcg oral tablet RxNorm: 714399 Allow Substitu tion: False Refill Denied: No Refill DateOccu rred: 02/09/20 Edited by: david(Jimmie Oviedo ) on 02/09/20 19 Stopped by: david(Jimmie Oviedo ) on Not Available Not Available Not Available Metrogel Vaginal 0.75 % (37.5 mg/5 gram) insert 1 applicat orful (37.5 mg) by vaginal route once daily at bedtime for five days 12/11 completed Metrogel VaginaL 0.75 % Vaginal Gel RxNorm: [id number] Allow Substitu tion: True Refill Denied: No Edited by: Coral Nagy) on 12/12/19 Stopped by: allan( Coral Estrella) on 12/12/19 Not Available Not Available Not Available Euthyrox 75 mcg tablet TAKE 1 TABLET BY MOUTH ONCE DAILY active Not Available Not Available No t Available phenazopy ridine 100 mg tablet active Not Available Not Available Not Available cephalexi n 500 mg capsule TAKE 1 CAPSULE BY MOUTH EVERY 12 HOURS FOR 7 DAYS active Not Available Not Available No t Available mupirocin 2 % topical ointment APPLY OINTMENT TOPICALL Y TWICE DAILY active Not Available Not Available No t Available oxybutyni n chloride 5 mg tablet active Not Available Not Available Not Available fluoxetin e 20 mg capsule TAKE 1 CAPSULE BY MOUTH ONCE DAILY active Not Available Not Available No t Available fluticaso ne propionat e 50 mcg/actua tion nasal spray,maria elena pension USE 1 TO 2 SPRAY(S) IN EACH NOSTRIL ONCE DAILY NEEDED active Not Available Not Available No t Available naproxen 500 mg tablet TAKE 1 TABLET BY MOUTH TWICE DAILY active Not Available Not Available No t Available nitrofura ntoin monohydra te/macroc rystals 100 mg capsule take 1 capsule (100 mg) by oral route 2 times per day with food active Not Available Not Available No t Available Prozac active PROzac RxNorm: 74914 Allow Substitu tion: False Refill Denied: No Refill DateOccu rred: 02/09/20 Edited by: Susan Montalvo ) on 02/09/20 Stopped by: Susan Montalvo ) on Not Available Not Available Not Available Vitals Date Recorded Body height Body mass index (BMI) Body weight Body temperature Systolic blood pressure Diastolic blood pressure Provider Name and Address Organization Details Last Updated DateTime 2 170.18 cm 25.8 kg/m2 02623.0 2 g 98.8 [degF] 110 mm[Hg] 60 mm[Hg] Barbara [facility] 2 14:23:56 Social History None recorded. Functional Status None recorded. Mental Status None recorded. Family History Relationship Description Onset Age of this Age Resolved Age Notes LastModified by Organization Details LastModified Time Father Hypertensive disorder [email or web address] Not available 04/24 17:53:26 Father Type 2 diabetes mellitus [email or web address] Not available 04/24 17:53:39 Mother Hypertensive disorder [email or web address] Not available 04/24 17:53:26 Maternal Grandmother Type 2 diabetes mellitus [email or web address] Not available 04/24 17:53:39 Medical History Condition Response Hypothyroidism Y Gynecological History Statement/Question Response Date of Last Pap Smear Most Recent Mammogram Current Control Method Hysterectom y Age at Menarche 14 Obstetrics History GPAL:G 9 P 4 0 5 4 Type Value Full Term 4 Spontaneous 5 Living 4 Total 9 Past Encounters Encounter ID Performer Location Encounter Start Date Encounter Closed Date Diagnosis/Indication Diagnosis SNOMED-CT Code Diagnosis ICD10 Code Diagnosis Note [id number] Germaine Romero DO [facility] h [address] [place] [address] 05/09/2021 14:13:00 05/09/2021 16:04:19 Menopausal symptom 98605598 N95.1 Health Concerns Section Related Observation LastModified by Organization Detai ls LastModified Time None Recorded Concern Status LastModified by Organization Details LastModified Time None Recorded Advance Directives Directive None Recorded Payers Insurance Date Sequence Insurance Name Policy Number Policy Mc Covered Member ID Mc Member ID Guarantor Name 05/10/2021 1 [facility] - DOS ON OR AFTER 20 (MEDICAID REPLACEMENT - HMO) Charmaine Davis [id number] Charmaine Davis Notes Date Note Type Note Provider Name and Address Organization Details Recorded Time 05/09/2021 text/html Patient presents with complaints of feeling fatigue, dizziness, hot flashes, mood swings, irritabilty, patient states that she was seen by her PCP and after his work-up, he recommended that she see her banquet server on call for possible hormonal issues causing her symptoms. Patient states that her B12 and vitamin d levels were low normal per PCP labs. Germaine Romero, DO [facility], [place], [address], [facility] 05/09/2021 20:53:55 OBGyn Episode No OBEpisode recorded.
--- OUTSIDE RECORDS SUMMARY | 2024-08-02 11:35 | XMS_ITS | Clinical Summary ---
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
--- OUTSIDE RECORDS SUMMARY | 2024-08-02 11:35 | XMS_ITS | Encounter Summary ---
Author Organization [facility] Address [address] [facility] [address] Care Team Providers Care Microfilm Technician Name Role Phone Kena Mauro MD Primary Care Provider + Reason for Visit * Reason Onset Date Comments Appointment 01/22/2022 Encounter Details Date Type Department Care Team (Late st Contact Info) Description 01/22/2022 Telephone [facility] [address] [place] [address] Macy Novak MD [address] [place] [phone] Appointment Social History Tobacco Use Types Packs/Day Years Used Date Smoking Tobacco: Former Cigarettes Q uit: 2007 Smokeless Tobacco: Never Alcohol Use Standard Drinks/Week Comments Yes 0 (1 standard drink = 0.6 oz pur e alcohol) Comments Unknown Sex and Gender Information Value Date Recorded Sex Assigned at Not on file 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 Palmer who has sooner openings (I have not seen pt before) Thank you. EYING CREW STAKE RUNNER * Telephone Encounter - Jacy Aden - 01/22/2022 2:15 PM CST Pt has some new spots,scheduled on 05-01-22 EYING CREW STAKE RUNNER documented in this encounter Plan of Treatment Not on file documented as of this encounter Visit Diagnoses Not on filedocumented in this encounter Care Teams Microfilm Technician Relationship Specialty Start Date End Date Kena Mauro MD [facility] [address] PCP - General 02/01/19 documented as of this encounter
== END 2024-08-02 10:14 | disposition home or self-care (01) ==
LOC: ANHIMG 10:21
PROVIDERS: PCP Family Medicine; Visit Provider Registered Nurse
DX: M19.021 Primary osteoarthritis, right elbow (principal); M25.572 Pain in left ankle and joints of left foot; M25.571 Pain in right ankle and joints of right foot
CPT/HCPCS: 73080; 73610

== ENCOUNTER 2025-01-30 15:14 | Emergency (ER) | payer OTHER, SELFPAY ==
[2025-01-30] VITALS (8 sets, daily range): BP systolic 111–141; BP diastolic 52–79; PULSE 70–82; RESP 12–22; O2SAT 99–100
--- NOTE | 2025-01-30 15:19 | ECG_ITS ---
Test Date: 2025-01-30 13:55:03 Measurements Intervals [place] Rate: 76 P: 45 NC: 176 QRS: 15 QRSD: 81 T: 30 QT: 358 QTc: 404 Interpretive Statements SINUS RHYTHM CONSIDER INFERIOR INFARCT, AGE INDETERMINATE BASELINE ARTIFACT- I, II, AVR ABNORMAL ECG No previous ECG available for comparison Electronically Signed On 01-31-2025 11:41:55 AUTOMATION ANALYST by Navdeep Melo D.O.
[2025-01-30 16:03] LABS: Hematocrit 39.5 % (37.0-47.0); Hemoglobin 13.4 g/dL (12.0-15.0); Immature Granulocyte Percent A 0.2 % (0-0.5); Lymphocytes Absolute Auto 2.15 K/mm3 (0.9-3.2); Mean Corpuscular HGB Conc 33.9 g/dl (32-36); Mean Corpuscular Hemoglobin 32.7 pg (26-34); Mean Corpuscular Volume 96.3 fl (80-100); Nucleated Red Blood Cells Absolute Auto 0.000 K/mm3 (0.0-0.012); Nucleated Red Blood Cells Perc 0.0 % (0.0-0.2); Platelet Count Result 209 k/mm3 (150-375); Red Blood Count 4.10 M/mm3 (4.2-5.4); White Blood Count 6.5 K/mm3 (4.5-10.0)
[2025-01-30] MEDS: LACTATED RINGERS 1,000 ML 999 ML IV CONT (16:05)
--- OUTSIDE RECORDS SUMMARY | 2025-01-30 16:06 | XMS_ITS | Encounter Summary ---
Author Organization [facility] Address [address] [facility] [place] [address] Care Team Providers Care Horticultural Worker Name Role Phone Kena Mauro MD Primary Care Provider + Reason for Visit * Reason Onset Date Comments Appointment 01/22/2022 Encounter Details Date Type Department Care Team (Late st Contact Info) Description 01/22/2022 Telephone [facility] [address] [place] [address] Macy Novak MD [address] [place] [phone] Appointment Social History Tobacco Use Types Packs/Day Years Used Date Smoking Tobacco: Former Cigarettes 0 Q uit: 2006 Smokeless Tobacco: Never Alcohol Use Standard Drinks/Week Comments Yes 0 (1 standard drink = 0.6 oz pur e alcohol) Comments Unknown Sex and Gender Information Value Date Recorded Sex Assigned at Not on file 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 Palmer who has sooner openings (I have not seen pt before) Thank you. RAFT LANDING GEAR INSPECTOR * Telephone Encounter - Jacy Aden - 01/22/2022 2:15 PM CST Pt has some new spots,scheduled on 05-01-22 RAFT LANDING GEAR INSPECTOR documented in this encounter Plan of Treatment Not on file documented as of this encounter Visit Diagnoses Not on filedocumented in this encounter Care Teams Horticultural Worker Relationship Specialty Start Date End Date Kena Mauro MD [address] [phone] PCP - General 02/01/19 documented as of this encounter
--- OUTSIDE RECORDS SUMMARY | 2025-01-30 16:06 | XMS_ITS | Data Portability ---
Author Organization [facility] Address [address] [place] [address] Assessment No assessment recorded. Plan of Treatment Reminders Order Date Submit Date Provider Last Modified By Organization Details Last Modified Time Details Appointments None recorde d. Lab testost erone, free + total, serum 022 05/10/19 [facility], [address] [place], [address], 2 00:24:50 lh + FSH, serum 022 05/10/19 [facility], [address] [place], [address], 2 00:24:52 estroge n, total, serum 022 05/10/19 [facility], [address] [place], [address], 2 00:24:51 progest erone, serum 022 05/10/19 [facility], [address] [place], [address], 2 00:24:52 Referral None recorde d. Procedures [...] albumin 4.8 g/dL 3.6-5. 1 Not Available [address], [address], 05/16/2021 00:24:50 05/10/19 22 05/15/2021 TESTO STERO NE, FREE, BIOAV AILAB LE AND TOTAL , MS sex hormone binding globulin 58.3 nmol/ L 17-124 Not Available [address], [address], 05/16/2021 00:24:50 05/10/1905/15/2021 TESTO STERO NE, FREE, BIOAV AILAB LE AND TOTAL , MS testosterone , free 1.4 pg/mL 0.2-5. 0 Not Available [address], [address], 05/16/2021 00:24:50 05/10/19 22 05/15/2021 TESTO STERO NE, FREE, BIOAV AILAB LE AND TOTAL , MS testosterone ,bioavailabl e 3.1 NG/dL 0.5-8. 5 Not Available [address], [address], 05/16/2021 00:24:50 05/10/1905/15/2021 TESTO STERO NE, FREE, BIOAV AILAB LE AND TOTAL , MS testosterone , total, MS 19 NG/dL 2-45 For addit ional li oquendo e refer to https ://ed ucati on.qu estdi [employer]. com/f aq/FA Q165 (This link is being provi ded for infogee mckeon nal/e ducat ional purpo ses only. ) (Note ) This test was devel oped and its rena tical perfo rmanc e rosalino cteri stics have been deter mined by [employer]. It has not been clear ed or appro forrest by the FDA. This assay has been valid ated pursu ant to the CLIA regul ation s and is used for clini warner purpo ses. MDF med fusio n [address] [facility] [address] [place] [address] [phone] Truman pathak MD Not Available [facility] In[facility] [address] [place], [address], 05/16/2021 00:24:50 05/10/19 22 05/15/2021 ESTRO GEN, [...] pre-p ubert al child [place]. Not Available [facility] [id number] [place], [address], 05/16/2021 00:24:51 05/10/19 22 05/15/2021 PROGE STERO NE progesterone 5.2 NG/mL normal Refer ence Range s Femal e Folli cular Phase < 1.0 Lutea l Phase 2.6-2 1.5 Post menop ausal < 0.5 Pregn jose 1st Trime ster 4.1-3 4.0 2nd Trime ster 24.0- 76.0 3rd Trime ster 52.0- 302.0 Not Available [facility] [address] [address] [place], [address], 05/16/2021 00:24:51 05/10/19 22 05/15/2021 FSH AND LH FSH 6.6 mIU/m L normal Refer ence Range Folli cular Phase 2.5-1 0.2 Mid-c ycle Peak 3.1-1 7.7 Lutea l Phase 1.5- 9.1 Postm enopa usal 23.0- 116.3 Not Available [facility] [address] [place], [address], 05/16/2021 00:24:52 05/10/19 22 05/15/2021 FSH AND LH LH 4.4 mIU/m L normal Refer ence Range Folli cular Phase 1.9-1 2.5 Mid-C ycle Peak 8.7-7 6.3 Lutea l Phase 0.5-1 6.9 Postm enopa usal 10.0- 54.7 Not Available [facility] [id number] [place] [address], [address], 05/16/2021 00:24:52 Result Notes None recorded. Problems Name Problem SNOMED Code Status Onset Date Resolution Date Notes Provider Name and Address Organization Details Recorded Time Acute vaginitis 43731694 Active 2018 Acute vaginitis; Progress: Stable Added By: Yajaira Barlow Add to Current Problems: YES ProblemSta tus: Current Not Available [facility] 2 16:10:14 Increased frequency of urination 007792779 Active 2018 Frequency of micturitio n; Progress: Stable Added By: Jimmie Alexander Add to Current Problems: YES ProblemSta tus: Current Not Available [facility] 2 16:10:14 Screening mammograp hy Active 2020 Encounter for screening mammogram for malignant neoplasm of breast; Progress: Stable Added By: Germaine Romero Add to Current Problems: YES ProblemSta tus: Current Not Available [facility] 2 16:10:14 Sampling of vagina for Papanicol aou smear Active 2020 Encounter for gynecologi warner examinatio n (general) (routine) without abnormal findings; Progress: Stable Added By: Germaine Romero Add to Current Problems: YES ProblemSta tus: Current Not Available [facility] 2 16:10:14 Lesion of ovary Active 2020 Other ovarian cyst, right side; Progress: Stable Added By: Germaine Romero Add to Current Problems: YES ProblemSta tus: Current Not Available [facility] 2 16:10:14 Problem Notes None recorded. Procedures Surgical History Date Name Laterality Status Provider Name and Address Organization Details Recorded Time dilation and curettage completed [facility] [employer] [facility] 05/08/2021 17:53:57 hysterectomy completed [facility] [employer] [facility] 05/08/2021 17:54:15 lithotripsy completed [facility] [employer] [facility] 05/08/2021 17:54:23 Imaging Results None recorded. Procedure Notes None recorded. Medical Equipment None Reported. Allergies Allergen ID Allergen Name Allergen Category Reaction Reaction Severity Criticality Documentation Date Start Date Code Code System Note Provider Name and Address Organization Details Recorded Time 131001 Augmentin medicatio n Not available Not available Not available 12/15/20202018 69512 2 RxNorm Sever ity: Moder ate; Not Available [facility] 01:08:04 Medications Name Sig Start [...] metroNID AZOLE 500 mg oral tablet RxNorm: 738742 Allow Substitu tion: True Refill Denied: No [...] levothyr oxine 100 mcg oral tablet RxNorm: 953771 Allow Substitu tion: False Refill Denied: No Refill DateOccu rred: 02/09/20 Edited by: Jimmie Marshall ) on 02/09/20 Stopped by: david(Jimmie Oviedo ) on Not Available Not Available Not Available Metrogel Vaginal 0.75 % (37.5 mg/5 gram) insert 1 applicat orful (37.5 mg) by vaginal route once daily at bedtime for five days 12/11 completed Metrogel VaginaL 0.75 % Vaginal Gel RxNorm: 046508 Allow Substitu tion: True Refill Denied: No [...] No t Available Prozac active PROzac RxNorm: 62279 Allow Substitu tion: False Refill Denied: No Refill DateOccu rred: 02/09/20 Edited by: Susan Montalvo ) on 02/09/20 Stopped by: Susan Montalvo ) on Not Available Not Available Not Available Vitals Date Recorded Body height Body mass index (BMI) Body weight Body temperature Systolic And Diastolic Provider Name and Address Organization Details Last Updated DateTime 05/09/2021 170.18 cm 25.8 kg/m2 99596.0 2 g 98.8 [degF] 110/60 mm[Hg] [facility] 14:23:56 Social History None recorded. Functional Status [...] Diagnosis SNOMED-CT Code Diagnosis ICD10 Code Diagnosis IMO Codes Diagnosis Note [id number] Germaine Romero DO [facility] [address] [place] [address] 05/09/2021 14:13:00 05/09/2021 16:04:19 Menopausal symptom 36898485 N95.1 Health Concerns Section Related Observation LastModified by Organization Detai ls LastModified Time None Recorded Concern Status LastModified by Organization Details LastModified Time None Recorded Advance Directives Directive None Recorded Payers Insurance Date Sequence Insurance Name Policy Number Policy Mc Covered Member ID Mc Member ID Guarantor Name 05/10/2021 1 [facility] ON OR AFTER 08/24/20 (MEDICAID REPLACEMENT - HMO) Charmaine Davis [id number] Charmaine Davis Notes Date Note Type Note Provider Name and Address Organization Details Recorded Time 05/09/2021 text/html Patient presents with complaints of feeling fatigue, dizziness, hot flashes, mood swings, irritabilty, patient states that she was seen by her PCP and after his work-up, he recommended that she see her louver door assembler for possible hormonal issues causing her symptoms. Patient states that her B12 and vitamin d levels were low normal per PCP labs. Germaine Romero DO [facility], [place], [address], [facility] 05/09/2021 20:53:55 OBGyn Episode No OBEpisode recorded.
--- OUTSIDE RECORDS SUMMARY | 2025-01-30 16:06 | XMS_ITS | Clinical Summary ---
Author Organization [facility] Address [address] [place] [address] Care Team Providers Care Condenser Operator Name Role Phone Jan Jordan MD Primary Care Provider [phone] Allergies Active Allergy Reactions Criticality Noted Date [...] Noted Date Diagnosed Date Kidney stone 04/07/2020 Encounters Date Type Department Care Team Description 11/17/2024 3:20 PM CDT [facility]) - [facility] Medicine Urology [address] [place] [address] Advanced Medicine 11th [place] [address] [place] [phone] Leigh Sahni NP Kidney stone (Primary Dx); Recurrent UTI 11/17/2024 1:19 PM CDT - 11/17/2024 11:59 PM CDT Hospital Encounter [facility] [address] [place] [address] Kidney stone Discharge Disposition: Discharge to home or self care 11/01/2024 2:00 PM CDT Office Visit [facility] ([facility]) [facility] Medicine Urology [address] [place] [address] 11th [place] [address] [place] [address] Leigh Sahni NP Kidney stone (Primary Dx); Recurrent UTI from Last 3 Months Social History Tobacco Use Types Packs/Day Years Used Date Smoking Tobacco: Former Smokeless Tobacco: Never Comments No Sex and Gender Information Value Date Recorded Sex Assigned at Not on file 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 Gender Identity Not on file Sexual Orientation [...] 06/06/2020 7:26 AM CDT Plan of Treatment Health Maintenance Due Date Last Done Comments Breast Cancer Screening-Mammogram 1971 Colon Cancer Screening-Colonoscopy 1971 Depression Screening 1971 Hepatitis C Screening 1971 DTaP/Tdap/Td Vaccine (1 - Tdap) 1982 Hepatitis B Screening 1989 Regular Well Visit/Exam 18-64 1989 Zoster Vaccine (1 of 2) 2021 Influenza Vaccine (#1) 2024 Pneumococcal vaccine <65 Aged Out No longer eligible based on patient's age to complete this topic Procedures Procedure Name Priority Date/Time Associated Diagnosis Comments POCT URINALYSIS DIPSTICK Routine 11/17/2024 3:03 PM CDT Kidney stone Recurrent UTI CT KUB STONE WO CONTRAST Schedule Routine, Read Routine (OP Routine) 11/17/2024 1:56 PM CDT Kidney stone POCT URINALYSIS DIPSTICK Routine 11/01/2024 2:00 PM CDT Kidney stone from Last 3 Months Results * (ABNORMAL) POCT urinalysis dipstick (11/17/2024 3:03 PM CDT) Color, Urine, POC Yellow Clarity, ur, POC Clear Clear Glucose, ur, POC Negative Negative Bilirubin, ur, POC Negative Negative Ketones, ur, POC Negative Negative Blood, ur, POC Trace(A) Negative pH, ur, POC 6.0 5.0 - 8.0 Protein, ur, POC Trace(A) Negative Nitrite, ur, POC Negative Negative Leukocytes, ur, POC Negative Negative Lot Number x Comment:x Urine 11/17/2024 3:03 PM CDT Leigh Sahni NP POINT OF CARE TEST OR DERABLES Final Result * CT KUB Stone WO Contrast (11/17/2024 1:56 PM CDT) Anatomical Region Laterality Modality Abdomen N/A Computed Tomogra phy 11/17/2024 2:30 PM CDT Impressions 11/17/2024 3:24 PM CDT 1. Multiple punctate nonobstructing left renal stones which are new from the prior exam. New nonobstructive right renal stone. Overall, increased stone burden when compared to the prior examination. No hydronephrosis. Dictated by: John Barrett M.D. The radiology attending physician has personally reviewed this study, and had reviewed and/or edited this written report and agrees with it. Electronically signed by: Yaron Lama M.D. Narrative 11/17/2024 3:24 PM CDT EXAMINATION: Computed tomography of the abdomen and pelvis without intravenous contrast HISTORY: 54-year-old female with history of nephrolithiasis since age 19 status post multiple lithotripsies. Recurrent urinary tract infections as well as flank pain. TECHNIQUE: Transaxial computed tomographic images of the abdomen and pelvis were obtained without intravenous contrast according to the renal stone protocol. COMPARISON: CT 12/05/2020 FINDINGS: The visualized lung bases are clear. No pleural effusion. No visualized pericardial effusion. The visualized thoracic aorta is normal in caliber. Normal liver size and contour. No suspicious hepatic lesions. Normal gallbladder. No intrahepatic or extra hepatic biliary ductal dilation. Normal noncontrast appearance of the pancreas, spleen, and adrenal glands. There are unchanged bilateral parapelvic cysts which are stable from the prior examination. There are multiple punctate nonobstructing stones on the left that are increased in burden when compared to prior with an unchanged parenchymal calcification measuring 14 mm (). There is a new 6 mm nonobstructive right renal stone. No hydronephrosis. Multiple pelvic phleboliths which are unchanged from the prior examination. No urolithiasis. Normal urinary bladder. The uterus is absent. No suspicious adnexal masses. Stable 10 mm left ovarian cyst. The distal esophagus, stomach, and duodenal sweep are normal. Normal caliber of the small intestine and colon. Mild colonic diverticulosis without diverticulitis. The terminal ileum and appendix are normal. No organizing fluid collection. No ascites. No pneumoperitoneum. The IVC is normal in caliber. The abdominal aorta is normal in caliber with mild atherosclerosis. No suspicious abdominal or pelvic lymphadenopathy. No acute soft tissue abnormality. There is a new focus of sclerosis in the right sacrum which is new from the prior exam, and likely indicates a bone island. No aggressive osseous lesions. Procedure Note Yaron Lama MD - 11/17/2024 EXAMINATION: Computed tomography of the abdomen and pelvis without intravenous contrast HISTORY: 54-year-old female with history of nephrolithiasis since age 19 status post multiple lithotripsies. Recurrent urinary tract infections as well as flank pain. TECHNIQUE: Transaxial computed tomographic images of the abdomen and pelvis were obtained without intravenous contrast according to the renal stone protocol. COMPARISON: CT 12/05/2020 FINDINGS: The visualized lung bases are clear. No pleural effusion. No visualized pericardial effusion. The visualized thoracic aorta is normal in caliber. Normal liver size and contour. No suspicious hepatic lesions. Normal gallbladder. No intrahepatic or extra hepatic biliary ductal dilation. Normal noncontrast appearance of the pancreas, spleen, and adrenal glands. There are unchanged bilateral parapelvic cysts which are stable from the prior examination. There are multiple punctate nonobstructing stones on the left that are increased in burden when compared to prior with an unchanged parenchymal calcification measuring 14 mm (). There is a new 6 mm nonobstructive right renal stone. No hydronephrosis. Multiple pelvic phleboliths which are unchanged from the prior examination. No urolithiasis. Normal urinary bladder. The uterus is absent. No suspicious adnexal masses. Stable 10 mm left ovarian cyst. The distal esophagus, stomach, and duodenal sweep are normal. Normal caliber of the small intestine and colon. Mild colonic diverticulosis without diverticulitis. The terminal ileum and appendix are normal. No organizing fluid collection. No ascites. No pneumoperitoneum. The IVC is normal in caliber. The abdominal aorta is normal in caliber with mild atherosclerosis. No suspicious abdominal or pelvic lymphadenopathy. No acute soft tissue abnormality. There is a new focus of sclerosis in the right sacrum which is new from the prior exam, and likely indicates a bone island. No aggressive osseous lesions. IMPRESSION: 1. Multiple punctate nonobstructing left renal stones which are new from the prior exam. New nonobstructive right renal stone. Overall, increased stone burden when compared to the prior examination. No hydronephrosis. Dictated by: John Barrett M.D. The radiology attending physician has personally reviewed this study, and had reviewed and/or edited this written report and agrees with it. Electronically signed by: Yaron Lama M.D. Leigh Sahni PRINT SHOP MANAGER IMG CT PROCEDURES Fin al Result * (ABNORMAL) POCT urinalysis dipstick (11/01/2024 2:00 PM CDT) Color, Urine, POC Light Yellow Clarity, ur, POC Clear Clear Glucose, ur, POC Negative Negative Ketones, ur, POC Negative Negative Blood, ur, POC 2+(A) Negative pH, ur, POC 5.0 5.0 - 8.0 Protein, ur, POC Trace(A) Negative Nitrite, ur, POC Negative Negative Leukocytes, ur, POC Negative Negative Lot Number 0 Urine 11/01/2024 2:00 PM CDT Leigh Sahni NP POINT OF CARE TEST OR DERABLES Final Result from Last [address] [place] [address] [facility] [place] [address] [place] [address] [facility] Care Teams Condenser Operator Relationship Specialty Start Date End Date Jan Jordan MD PCP - General Family Medicine 12/27/19
--- OUTSIDE RECORDS SUMMARY | 2025-01-30 16:06 | XMS_ITS | Clinical Summary ---
Author Organization [facility] Address [address] [place] [address] Care Team Providers Care Siding Applicator Name Role Phone Kena Mauro MD Primary Care Provider + Source Comments [facility],non-owned Affiliates and Associated Physician Practices is amultiple site organization consisting of ambulatory clinics and hospital sitesin [place], [place], [place] and [place]. This disclosure is being madepursuant to the Care Everywhere program and may not contain all information available regarding this patient. 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 Gender Identity Not on file Sexual Orientation [...] SCREENING 1971 LIPID TESTING 1971 MAMMOGRAM 1971 HIV SCREENING 1986 HEPATITIS C SCREENING 04/06/1989 DTAP/TDAP/TD VACCINES (1 - Tdap) 1990 HEPATITIS B VACCINE (1 of 3 - 19+ 3-dose series) 1990 Cervical Cancer Screening 1992 PAP SMEAR 1992 PAP with HPV 2001 PNEUMOCOCCAL VACCINE 50+ (1 of 1 - PCV) 2021 ZOSTER VACCINE (1 of 2) 2021 DEPRESSION SCREENING 02/25/2024 COVID-19 VACCINE (1 - 2024-2 6 season) 2024 INFLUENZA VACCINE (#1) 2024 HIB VACCINE Aged Out No longer [...] age to complete this topic Insurance [address] [place], [place] [id number] [place] [address] [address] [place], [place] [id number] [place] [address] Care Teams Siding Applicator Relationship Specialty Start Date End Date Kena Mauro MD [address] [address] PCP - General 02/01/19
[2025-01-30 18:08] LABS: Alanine Aminotransferase 19 U/L (6-35); Albumin Level 3.9 g/dL (3.5-5.1); Alkaline Phosphatase 71 U/L (38-126); Anion Gap 4 mmol/L (4-12); Aspartate Amino Transferase 22 U/L (14-36); Bilirubin,Total 0.4 mg/dL (0.2-1.3); Blood Urea Nitrogen 15 mg/dL (7-17); Calcium 8.9 mg/dL (8.4-10.2); Carbon Dioxide 27 mmol/L (22-30); Chloride 108 mmol/L (98-107); Estimated CRCL calculation 72 ml/min; Estimated Glomerular Filt Rate > 60; Glucose 96 mg/dL (65-110); Magnesium 1.9 mg/dL (1.6-2.3); Potassium 4.0 mmol/L (3.4-5.0); Sodium 139 mmol/L (137-145); Total Protein 6.5 g/dL (6.3-8.2)
--- NOTE | 2025-01-30 18:30 | ED.ARRPALP ---
HPI - Arrhythmia/Palpitations General Chief Complaint: Arrhythmia/Palpitations Stated Complaint: heart fluttering Time Seen by Provider: 01/30/25 15:22 History of Present Illness HPI narrative: Patient finished watching a movie, then felt like her heart seemed to be fluttering and her heartbeat felt abnormal. Denies Chest pain or trouble breathing. This has not happened before. Related Data Home Medications ?Medication ?Instructions ?Recorded ?Confirmed ?Last Taken ?Type cholecalciferol (vitamin D3) 50 50 mcg PO DAILY 05/24/21 08/26/24 Unknown History mcg (2,000 unit) capsule vitamin B12 500 mcg-folic acid 400 1 tablet PO DAILY 05/24/21 08/26/24 Unknown History mcg tablet levothyroxine 75 mcg tablet 100 mcg PO DAILY 08/26/24 08/26/24 Unknown History (Euthyrox) Allergies Allergy/AdvReac Type Severity Reaction Status Date / Time amoxicillin (From Augmentin) Allergy Unknown Swelling Verified 01/30/25 15:18 clavulanic acid (From Allergy Unknown Swelling Verified 01/30/25 15:18 Augmentin) Review of Systems Review of Systems: All systems reviewed & are unremarkable except as noted in HPI and below PMFSH Past Medical History Medical History Lumbar radiculopathy Cervical radiculopathy Chiari malformation Anxiety and depression Hypothyroidism Nephrolithiasis Anxiety Surgical History Surgical History H/O: hysterectomy H/O lithotripsy H/O section Family History Family History Mother No pertinent past medical history Hypertension Depression Cerebrovascular accident Thyroid disorder Father No pertinent past medical history Alcoholism Liver cancer Diabetes mellitus Hypertension Cerebrovascular accident Sibling Cerebrovascular accident Grandparent Thyroid disorder Social History Social History (Updated 08/26/24 @ 11:01 by Patience Estrada CMA) Social History: Charmaine is very confident filling out medical forms. In the last 12 months she has received assistance from an organization or program for food. Smoking status: Never smoker Alcohol intake: current Substance use: never Lack of Transportation: No Lack of Food: Never True Current Housing: I Have Housing Concerned About Future Housing: No Difficulty Paying Gas/Electric Bills: No Difficulty Paying for Meds: No Currently Unemployed: YES Education: Trade/Vocational Certificate Difficulty w/ Childcare or Family Care: YES Living arrangements: with family Gender identity (if verbalized by the patient): Female Exam Narrative: EXAMINATION OF ORGAN SYSTEMS/BODY AREAS: Constitutional: Vital signs per nursing GENERAL:No acute distress, non-toxic appearing. HEAD: Normal with no signs of head trauma. EYES: EOMI, conjunctiva normal ENT: Hearing grossly intact LUNGS: Nonlabored breathing. HEART: Regular rate and rhythm ABD: Soft, nontender to palpation EXT: Normal range of motion SKIN: No rashes or lesions. NEURO: Alert. No gross focal sensory or strength deficits. PSYCH: Normal affect Course Vital Signs Vital signs: Vital Signs Respiratory Rate 22 H 01/30/25 15:25 Blood Pressure 141/73 H 01/30/25 15:25 Pulse Oximetry 100 01/30/25 15:25 Pulse Rate 73 01/30/25 16:00 Respiratory Rate 17 01/30/25 16:00 Blood Pressure 120/79 01/30/25 15:46 Pulse Oximetry 100 01/30/25 16:00 Oxygen Delivery Room Air 01/30/25 15:26 MDM MDM Narrative Medical decision making narrative: Patient presents with sensation of palpitations or missed beats, she is well-appearing here in no distress, EKG obtained on my independent interpretation shows normal sinus rhythm, normal rate, with PVCs, no ST elevations or depressions or signs of acute ischemia She has been on the telemetry here for several hours and has been in sinus rhythm without significant PVC burden Electrolytes have been normal. She is given IV fluids. On re-evaluation she is still well-appearing in no distress. I will provide follow-up to Cardiology with return precautions Differential Diagnosis Differential Diagnosis: Bilaterally abnormality, arrhythmia, anxiety Lab Data 01/30/25 15:58 01/30/25 17:54 Labs: Lab Results 01/30/25 01/30/25 Range/Units 15:58 17:54 WBC 6.5 (4.5-10.0) K/mm3 RBC 4.10 L (4.2-5.4) M/mm3 Hgb 13.4 (12.0-15.0) g/dL Hct 39.5 (37.0-47.0) % MCV 96.3 (80-100) fl MCH 32.7 (26-34) pg MCHC 33.9 (32-36) g/dl RDW 12.9 (11.5-14.5) % Plt Count 209 (150-375) k/mm3 MPV 9.5 (7.4-10.4) fl Immature Gran % (Auto) 0.2 (0-0.5) % Neut % (Auto) 58.5 (45.5-73.1) % Lymph % (Auto) 33.0 (18.3-44.2) % Real % (Auto) 6.3 (2.6-8.5) % Eos % (Auto) 1.8 (0-4.4) % Baso % (Auto) 0.2 (0.2-1.2) % Lymph # (Auto) 2.15 (0.9-3.2) K/mm3 Real # (Auto) 0.4 (0.1-0.6) K/mm3 Eos # (Auto) 0.1 (0-0.3) K/mm3 Baso # (Auto) 0.0 (0.0-0.1) K/mm3 Abs Immat Gran (auto) 0.01 (0.00-0.031) K/mm3 Absolute Neuts (auto) 3.8 (1.3-6.7) K/mm3 Absolute Nucleated RBC 0.000 (0.0-0.012) K/mm3 Nucleated RBC % 0.0 (0.0-0.2) % Sodium 139 (137-145) mmol/L Potassium 4.0 (3.4-5.0) mmol/L Chloride 108 H (98-107) mmol/L Carbon Dioxide 27 (22-30) mmol/L Anion Gap 4 (4-12) mmol/L BUN 15 (7-17) mg/dL Creatinine 0.87 (0.7-1.0) mg/dL Estim Creat Clear Calc 72 ml/min Estimated GFR > 60 (59 - ) Glucose 96 (65-110) mg/dL Calcium 8.9 (8.4-10.2) mg/dL Magnesium 1.9 (1.6-2.3) mg/dL Total Bilirubin 0.4 (0.2-1.3) mg/dL AST 22 (14-36) U/L ALT 19 (6-35) U/L Alkaline Phosphatase 71 (38-126) U/L Total Protein 6.5 (6.3-8.2) g/dL Albumin 3.9 (3.5-5.1) g/dL Discharge Plan Discharge Clinical Impression: Heart palpitations Patient Disposition: Home Condition: Stable Instructions: Heart Palpitations (ED) Additional Instructions: Your labs and electrolytes look normal here. Please follow-up with desulfurizer machine, make sure you are keeping hydrated, and if your symptoms return or worsen, you can return to the ER. Patient Language: Italian Prescriptions: No Action cholecalciferol (vitamin D3) 50 mcg (2,000 unit) capsule 50 mcg PO DAILY vitamin [id number] 500-400 mcg tablet 1 tablet PO DAILY Rx Instructions: administer with a meal levothyroxine [Euthyrox] 75 mcg tablet 100 mcg PO DAILY Follow-up/Referrals: Raghu Godinez MD [Physician, Cardiology] - 2 Days Jan Jordan MD [Primary Care Provider, Family Practice]
== END 2025-01-30 18:41 | disposition home or self-care (01) ==
PROVIDERS: Emergency Provider Emergency Medicine; PCP Family Medicine
DX: R00.2 Palpitations (principal); R94.31 Abnormal electrocardiogram [ECG] [EKG]; F41.9 Anxiety disorder, unspecified; F32.A Depression, unspecified; E03.9 Hypothyroidism, unspecified; Z87.442 Personal history of urinary calculi; M54.12 Radiculopathy, cervical region; M54.16 Radiculopathy, lumbar region
CPT/HCPCS: 36415; 80053; 83735; 85025; 93005; 96360; 99283; J7120